=== PATIENT | male | born 1940 | race Caucasian/White ===

== ENCOUNTER 2017-08-24 08:25 | Inpatient (IN) ==
--- NOTE | 2017-08-24 08:53 | Emergency Department Note ---
Disposition Clinical Impression: Urinary retention, Hematochezia Disposition: Admitted As Inpatient Condition: Good Referrals: NONE,PCP [Primary Care Provider] - Forms: ED Satisfaction Letter Time of Disposition: 11:54 General Adult HPI - General Chief complaint: ED GI Bleed Stated complaint: bloody stool Time Seen by Provider: 08/24/17 08:30 Source: patient, family Mode of arrival: ambulatory Limitations: no limitations Nursing Notes Reviewed: Yes Vital Signs Reviewed: Yes - History of Present Illness HPI Narrative: 69-year-old male presented to the emergency department with chief complaint of blood per rectum. Patient states for the last month and a half he has had blood per rectum but it has acutely gotten worse this morning. He states he has a significant past medical history of a triple a repair approximately 2-3 years ago. He also is currently getting treated for prostate cancer. Patient is unsure what medication he is taking although he notes it is an injection. Patient also describes right lower and left lower quadrant abdominal discomfort. He states it does not radiate anywhere. He denies any urinary symptoms. He denies any shortness of breath or chest pain. Patient states he has been feeling weak as well for the past 2 days. Patient denies any passing out or hitting his head. Pain Scale: 2 - Related Data Allergies Allergy/AdvReac Type Severity Reaction Status Date / Time Sulfa (Sulfonamide Allergy Shakiness Verified 08/24/17 08:30 Antibiotics) All systems ED: reviewed and negative except as stated. Constitutional: Reports: weakness. Denies: fever, chills Eyes: Reports: as per HPI ENT ED: Reports: as per HPI Cardiovascular: Denies: chest pain, palpitations Respiratory: Denies: cough, dyspnea, wheezes Gastrointestinal: Reports: abdominal pain, hematochezia. Denies: nausea, vomiting Genitourinary: Reports: as per HPI Musculoskeletal: Reports: as per HPI Integumentary: Reports: as per HPI Neurological: Reports: weakness. Denies: numbness, paresthesias Psychiatric: Reports: as per HPI Endocrine: Reports: as per HPI Hematological/Lymphatic: Reports: as per HPI Allergic/Immunologic: Reports: as per HPI Past Medical History - Past Medical History Attestation: Yes The following information was validated with the patient. Medical history: Reports: cancer, COPD Surgical history: Reports: angioplasty/stent Psychiatric history: Reports: no psych history - Social History Smoking Status: Former smoker Smokeless Tobacco Status: No Alcohol use: Reports: occasionally Drug use: Reports: none Physical Exam - General Limitations: no limitations General appearance: alert, in no apparent distress - Head Head exam: atraumatic, normocephalic, normal inspection - Eye Eye exam: Present: normal appearance. Absent: scleral icterus, conjunctival injection - Chest Chest inspection: Present: normal inspection, symmetric chest wall rise. Absent : tenderness, rash - Respiratory Respiratory exam: Present: normal lung sounds bilaterally. Absent: respiratory distress, wheezes - Cardiovascular Cardiovascular exam: Present: regular rate, normal rhythm, normal heart sounds - Abdominal Exam Abdominal exam: Present: soft, tenderness, distention, incision (Midline well- healed). Absent: guarding, rebound, rigidity, Trotter's sign, Rovsing's sign, tenderness at McBurney's Point Abdominal tenderness: Present: RLQ, LLQ, mild - Extremities Exam Extremities exam: Present: normal inspection, full ROM - Neurological Exam Neurological exam: Present: alert, oriented X3 - Psychiatric Psychiatric exam: Present: normal affect, normal mood - Skin Skin exam: Present: warm, intact Course Course Narrative: 69-year-old male presenting to the emergency department chief complaint of blood per rectum. Patient has had a AAA repair in the past 2-3 years. Concern for GI bleed at this time. We will obtain basic lab work including a type and screen along with a CBC and obtain a CTA of the abdomen and pelvis. Patient's alert and oriented 3 in the room. He is hypertensive with systolic in the 200s the patient states he has been taking his blood pressure at home and the last reading 2 days ago was 194/104. Patient is not tachycardic and vital signs are otherwise stable at this time. is at bedside at this time. They agree with the plan at this time. Disposition most likely admission at this time. - Reevaluation(s) Reevaluation #1: Patient's CT has come back with a significantly distended bladder. We will admit patient at this time for GI bleed and urinary retention. The hospitalist Dr. Pedro agrees with this and is willing to accept the patient this time. Bedside ultrasound completed showed post void residual of greater than 700 mL in the bladder. We will place a Hughes and the patient at this time. Patient is alert and oriented 3 and her with stable vital signs at this time and agreed with this plan. Time: 11:53 Vital Signs Temperature 97.4 F L 08/24/17 08:25 Pulse Rate 86 08/24/17 08:25 Respiratory Rate 20 08/24/17 08:25 Blood Pressure 210/100 08/24/17 08:25 O2 Sat by Pulse Oximetry 92 08/24/17 08:25 Temperature 97.4 F L 08/24/17 08:25 Pulse Rate 92 08/24/17 11:37 Respiratory Rate 14 08/24/17 11:37 Blood Pressure 173/96 08/24/17 11:37 O2 Sat by Pulse Oximetry 92 08/24/17 11:37 Oxygen Delivery Oxygen Delivery Room Air Medical Decision Making - Lab Data Result diagrams: 08/24/17 09:46 08/24/17 09:46 Lab Results 08/24/17 08/24/17 08/24/17 Range/Units 09:46 09:46 09:46 WBC 5.6 (4.3-11.1) K/mcL RBC 4.69 (4.19-5.50) M/mcL Hgb 15.1 (12.9-16.9) g/dL Hct 45.0 (37.5-50.1) % MCV 95.9 (83.0-100.0) fL MCH 32.2 (28.0-33.3) pg MCHC 33.6 (31.6-35.5) g/dL RDW 12.0 (11.5-14.5) % Plt Count 220 (140-400) K/mcL MPV 10.2 (9.4-12.4) fL Immature Gran % 0.2 (0-4) % Seg Neutrophils % 68.2 % Lymphocytes % 18.1 % Monocytes % 10.2 % Eosinophils % 2.9 % Basophils % 0.4 % Neutrophils # 3.8 (1.6-8.9) K/mcL Lymphocytes # 1.0 (0.6-4.6) K/mcL Monocytes # 0.6 (0.0-1.3) K/mcL Eosinophils # 0.2 (0.0-0.6) K/mcL Basophils # 0.0 (0.0-0.2) K/mcL Nucleated RBCs/100 WBC 0.4 H (0) /100 WBC Immature Plt Fraction 3.8 (1.1-6.1) % PT 11.5 (9.4-12.1) Seconds INR 1.1 APTT 30.7 (26.0-36.0) Seconds Sodium (136-145) mEq/L Potassium (3.5-4.5) mEq/L Chloride (98-109) mEq/L Carbon Dioxide (19-29) mEq/L BUN (8-26) mg/dL Creatinine (0.72-1.25) mg/dL Est GFR ( Amer) (> 60) Est GFR (Non-Af Amer) (> 60) BUN/Creatinine Ratio (6-26) Glucose (70-99) mg/dL Calculated Osmolality (280-300) Calcium (8.6-10.8) mg/dL Troponin I 0.00 (0-0.03) ng/mL Stool Occult Blood (Negative) Blood Type Antibody Screen 08/24/17 08/24/17 08/24/17 Range/Units 09:46 09:46 10:24 WBC (4.3-11.1) K/mcL RBC (4.19-5.50) M/mcL Hgb (12.9-16.9) g/dL Hct (37.5-50.1) % MCV (83.0-100.0) fL MCH (28.0-33.3) pg MCHC (31.6-35.5) g/dL RDW (11.5-14.5) % Plt Count (140-400) K/mcL MPV (9.4-12.4) fL Immature Gran % (0-4) % Seg Neutrophils % % Lymphocytes % % Monocytes % % Eosinophils % % Basophils % % Neutrophils # (1.6-8.9) K/mcL Lymphocytes # (0.6-4.6) K/mcL Monocytes # (0.0-1.3) K/mcL Eosinophils # (0.0-0.6) K/mcL Basophils # (0.0-0.2) K/mcL Nucleated RBCs/100 WBC (0) /100 WBC Immature Plt Fraction (1.1-6.1) % PT (9.4-12.1) Seconds INR APTT (26.0-36.0) Seconds Sodium 137 (136-145) mEq/L Potassium 3.9 (3.5-4.5) mEq/L Chloride 102 (98-109) mEq/L Carbon Dioxide 27 (19-29) mEq/L BUN 11 (8-26) mg/dL Creatinine 0.76 (0.72-1.25) mg/dL Est GFR ( Amer) > 60 (> 60) Est GFR (Non-Af Amer) > 60 (> 60) BUN/Creatinine Ratio 14 (6-26) Glucose 95 (70-99) mg/dL Calculated Osmolality 283 (280-300) Calcium 9.1 (8.6-10.8) mg/dL Troponin I (0-0.03) ng/mL Stool Occult Blood Positive A (Negative) Blood Type A POSITIVE Antibody Screen NEGATIVE - EKG Data EKG #1 EKG attestation: Yes I reviewed and interpreted this EKG. EKG results narrative: Sinus rhythm with sinus arrhythmia. 84 bpm. Left axis deviation. [place] interval 180, QRS 93, QTc 455. [place] of the T wave abnormalities noted. When compared to previous EKG completed on 09/07/2014 no specific changes noted.
--- NOTE | 2017-08-24 09:10 | Emergency Department Note ---
Disposition Clinical Impression: Urinary retention, Hematochezia Disposition: Admitted As Inpatient Condition: Good Referrals: NONE,PCP [Primary Care Provider] - Forms: ED Satisfaction Letter General Adult HPI - General Chief complaint: ED GI Bleed Stated complaint: bloody stool Time Seen by Provider: 08/24/17 08:30 Source: patient, family Mode of arrival: ambulatory Limitations: no limitations Nursing Notes Reviewed: Yes Vital Signs Reviewed: Yes - History of Present Illness Pain Scale: 2 - Related Data Allergies Allergy/AdvReac Type Severity Reaction Status Date / Time Sulfa (Sulfonamide Allergy Shakiness Verified 08/24/17 08:30 Antibiotics) Past Medical History - Past Medical History Medical history: Reports: cancer, COPD Surgical history: Reports: angioplasty/stent Psychiatric history: Reports: no psych history - Social History Smoking Status: Former smoker Smokeless Tobacco Status: No Alcohol use: Reports: occasionally Drug use: Reports: none Physical Exam - General Limitations: no limitations General appearance: alert, in no apparent distress Course Vital Signs Temperature 97.4 F L 08/24/17 08:25 Pulse Rate 86 08/24/17 08:25 Respiratory Rate 20 08/24/17 08:25 Blood Pressure 210/100 08/24/17 08:25 O2 Sat by Pulse Oximetry 92 08/24/17 08:25 Temperature 97.4 F L 08/24/17 08:25 Pulse Rate 92 08/24/17 11:37 Respiratory Rate 14 08/24/17 11:37 Blood Pressure 173/96 08/24/17 11:37 O2 Sat by Pulse Oximetry 92 08/24/17 11:37 Oxygen Delivery Oxygen Delivery Room Air Medical Decision Making - MDM Narrative Medical decision making narrative: I examined this patient and my medical decision-making was reviewed with the Resident Physician. I agree with the documented findings, disposition and treatment plan as described except to the extent set forth below. Patient seen and evaluated on arrival with Dr. Rodriges, and myself, high-grade evaluation and management plan, supervise care this patient's stay. Patient presents today with lower GI bleeding. Had a history of gastric ulcer in the past but did not have this corrected with surgical repair. Neuro abdominal pain does know does look distended. He did have a review is triple-A repair. That has been doing well. Negative CT about a year ago from that is all lower does not go up in the thoracic region. He denies any chest pain or shortness of breath. Blood pressure is high today. We will start an IV on him check lab work CT his abdomen then reassess. He is in agreement with this plan. He is stable at this time. Chest X-Ray 08/24/17 08:32 IMPRESSION: 1. Borderline cardiomegaly without overt failure. 2. Linear densities involving the lower lung zones likely representing scarring. D/ / Gordo Miller MD / Gordo Miller MD Interpreting Provider: Gordo Miller MD Abdomen/Pelvis CTA 08/24/17 08:46 IMPRESSION: 1. Status post endovascular repair of an abdominal aortic aneurysm with no evidence for an endoleak and slight regression of the aneurysm sac now measuring 4 x 4.1 cm. 2. No evidence for retroperitoneal hemorrhage. 3. Hepatic hemangiomas. 4. Patent left to right femoral femoral artery bypass graft. 5. Marked bladder distention. D/ / Gordo Miller MD / Gordo Miller MD Interpreting Provider: Gordo Miller MD 11:30: Patient does have positive guaiac. With a history of a GI bleed. Return to admit. He has a large bladder so we will place a Hughes to see if we can drain that also. And I will speak with the hospitalist. 1150 hrs.: Bedside ultrasound performed by the ER resident, shows a large bladder more than 500 mL. More likely 7800 mL. This is after he urinated. Diane place a Hughes in him. And C3 and drain that completely. I am guessing this is from his history of prostate cancer in the past. He is in agreement with this plan. - Lab Data Result diagrams: 08/24/17 09:46 08/24/17 09:46 Lab Results 08/24/17 08/24/17 08/24/17 Range/Units 09:46 09:46 09:46 WBC 5.6 (4.3-11.1) K/mcL RBC 4.69 (4.19-5.50) M/mcL Hgb 15.1 (12.9-16.9) g/dL Hct 45.0 (37.5-50.1) % MCV 95.9 (83.0-100.0) fL MCH 32.2 (28.0-33.3) pg MCHC 33.6 (31.6-35.5) g/dL RDW 12.0 (11.5-14.5) % Plt Count 220 (140-400) K/mcL MPV 10.2 (9.4-12.4) fL Immature Gran % 0.2 (0-4) % Seg Neutrophils % 68.2 % Lymphocytes % 18.1 % Monocytes % 10.2 % Eosinophils % 2.9 % Basophils % 0.4 % Neutrophils # 3.8 (1.6-8.9) K/mcL Lymphocytes # 1.0 (0.6-4.6) K/mcL Monocytes # 0.6 (0.0-1.3) K/mcL Eosinophils # 0.2 (0.0-0.6) K/mcL Basophils # 0.0 (0.0-0.2) K/mcL Nucleated RBCs/100 WBC 0.4 H (0) /100 WBC Immature Plt Fraction 3.8 (1.1-6.1) % PT 11.5 (9.4-12.1) Seconds INR 1.1 APTT 30.7 (26.0-36.0) Seconds Sodium (136-145) mEq/L Potassium (3.5-4.5) mEq/L Chloride (98-109) mEq/L Carbon Dioxide (19-29) mEq/L BUN (8-26) mg/dL Creatinine (0.72-1.25) mg/dL Est GFR ( Amer) (> 60) Est GFR (Non-Af Amer) (> 60) BUN/Creatinine Ratio (6-26) Glucose (70-99) mg/dL Calculated Osmolality (280-300) Calcium (8.6-10.8) mg/dL Troponin I 0.00 (0-0.03) ng/mL Stool Occult Blood (Negative) Blood Type Antibody Screen 11/15/17 11/15/17 11/15/17 Range/Units 09:46 09:46 10:24 WBC (4.3-11.1) K/mcL RBC (4.19-5.50) M/mcL Hgb (12.9-16.9) g/dL Hct (37.5-50.1) % MCV (83.0-100.0) fL MCH (28.0-33.3) pg MCHC (31.6-35.5) g/dL RDW (11.5-14.5) % Plt Count (140-400) K/mcL MPV (9.4-12.4) fL Immature Gran % (0-4) % Seg Neutrophils % % Lymphocytes % % Monocytes % % Eosinophils % % Basophils % % Neutrophils # (1.6-8.9) K/mcL Lymphocytes # (0.6-4.6) K/mcL Monocytes # (0.0-1.3) K/mcL Eosinophils # (0.0-0.6) K/mcL Basophils # (0.0-0.2) K/mcL Nucleated RBCs/100 WBC (0) /100 WBC Immature Plt Fraction (1.1-6.1) % PT (9.4-12.1) Seconds INR APTT (26.0-36.0) Seconds Sodium 137 (136-145) mEq/L Potassium 3.9 (3.5-4.5) mEq/L Chloride 102 (98-109) mEq/L Carbon Dioxide 27 (19-29) mEq/L BUN 11 (8-26) mg/dL Creatinine 0.76 (0.72-1.25) mg/dL Est GFR ( Amer) > 60 (> 60) Est GFR (Non-Af Amer) > 60 (> 60) BUN/Creatinine Ratio 14 (6-26) Glucose 95 (70-99) mg/dL Calculated Osmolality 283 (280-300) Calcium 9.1 (8.6-10.8) mg/dL Troponin I (0-0.03) ng/mL Stool Occult Blood Positive A (Negative) Blood Type A POSITIVE Antibody Screen NEGATIVE
[2017-08-24 09:57] LABS: Basophils % 0.4 %; Eosinophils # 0.2 K/mcL (0.0-0.6); Eosinophils % 2.9 %; Hemoglobin 15.1 g/dL (12.9-16.9); Immature Granulocytes % 0.2 % (0-4); Immature Platelets 3.8 % (1.1-6.1); Lymphocytes % 18.1 %; Mean Corpuscular HGB Conc 33.6 g/dL (31.6-35.5); Mean Corpuscular Hemoglobin 32.2 pg (28.0-33.3); Mean Corpuscular Volume 95.9 fL (83.0-100.0); Mean Platelet Volume 10.2 fL (9.4-12.4); Monocytes # 0.6 K/mcL (0.0-1.3); Monocytes % 10.2 %; Neutrophils # 3.8 K/mcL (1.6-8.9); Nucleated Red Blood Cells 0.4 /100 WBC (0); Platelet Count 220 K/mcL (140-400); Red Blood Count 4.69 M/mcL (4.19-5.50); Segmented Neutrophils % 68.2 %
[2017-08-24 10:04] LABS: INR 1.1; Prothrombin Time 11.5 Seconds (9.4-12.1)
[2017-08-24 10:06] LABS: Activated Partial Thrombo Time 30.7 Seconds (26.0-36.0)
[2017-08-24 10:09] LABS: BUN/Creatinine Ratio 14 (6-26); Blood Urea Nitrogen 11 mg/dL (8-26); Calcium 9.1 mg/dL (8.6-10.8); Carbon Dioxide 27 mEq/L (19-29); Chloride 102 mEq/L (98-109); Glucose 95 mg/dL (70-99); Osmolality,Calculated 283 (280-300); Potassium 3.9 mEq/L (3.5-4.5); Sodium 137 mEq/L (136-145); eGFR For African Americans > 60 (> 60); eGFR For Non-African Americans > 60 (> 60)
[2017-08-24 11:57] LABS: Hemoglobin 14.9 g/dL (12.9-16.9)
[2017-08-24] MEDS ORDERED: Naloxone 0.4 MG/ML INJ IVP PRN (12:57)
[2017-08-24] MEDS ORDERED: Ondansetron 4 MG/2 ML VIAL IVP PRN (12:57)
[2017-08-24] MEDS ORDERED: Nitroglycerin 0.4 MG TAB.SUBL SL PRN (13:10)
[2017-08-24] MEDS ORDERED: Ipratropium/Albuterol Neb 3 ML IH PRN (13:11)
[2017-08-24] MEDS ORDERED: Pantoprazole 40 MG in 0.9 % Sodium Chloride Mini Bag 100 ML IVC SCH (13:15)
[2017-08-24 13:25] LABS: Hematocrit 43.9 % (37.5-50.1); Hemoglobin 14.7 g/dL (12.9-16.9)
--- NOTE | 2017-08-24 15:49 | Electrocardiograph Report ---
[address] [place], [place] [address] Test Date: 2017-08-24 Pat Name: Gume Brown Department: 104 Room: 3A41 Gender: M Sliver Cutter: : [id number] Requested By: Branden Guo Order Number: [id number] Reading MD: Angel Ernandez MD Measurements Intervals [place] Rate: 84 P: 64 VA: 180 QRS: -22 QRSD: 93 T: 64 QT: 414 QTc: 455 Interpretive Statements SINUS RHYTHM WITH SINUS ARRHYTHMIA BORDERLINE LEFT AXIS DEVIATION Electronically Signed On 08-24-2017 15:47:57 EST by Angel Ernandez MD
[2017-08-24] MEDS: Pantoprazole 80 MG in 0.9 % Sodium Chloride 250 ML IVC SCH (16:12)
[2017-08-24 16:31] LABS: Hematocrit 42.9 % (37.5-50.1); Hemoglobin 14.7 g/dL (12.9-16.9)
[2017-08-24] MEDS: Budesonide/Formoterol 160/4.5 MDI IH SCH (19:52)
--- NOTE | 2017-08-24 21:37 | Internal Med History&Physical ---
<Wyatt Rodríguez - Last Filed: 08/24/17 22:08> Date of Encounter: 08/24/17 Time of Encounter: 12:00 Assessment and Plan (1) Hematochezia Current visit: Yes Status: Acute Acute on chronic rectal bleeding. Pt. states he's had melanotic stools for 1.5 months which have progressed to bright red blood over the past several days. Pt. states last EGD/colonoscopy >10 years ago. GI consult ordered. Monitor pt. for signs of continued bleeding. Pt. at high risk for morbidity based on current GI bleeding, history of melanotic stools, and history of current cancer. Inpatient. (2) Weakness Current visit: Yes Status: Acute Acute weakness reported over the past several days most likely d/t blood loss. Falls/safety precautions ordered. Pt. to be monitored closely for signs of bleeding, cardiac, and/or respiratory distress. (3) Anemia Current visit: Yes Status: Acute Acute on chronic anemia. Pts. Hgb and Hct WNL on admission and dropping in subsequent labs, but still WNL. Type and screen ordered. B12 IM and folic acid daily. H/H Q6. Qualifiers: Anemia type: unspecified type Qualified Code(s): D64.9 - Anemia, unspecified (4) Urinary retention Current visit: Yes Status: Acute Acute urinary retention most likely d/t current BPH and prostate cancer. Hughes catheter inserted and >1000 mL extracted. Will monitor I&O and daily weight. Pt. to f/u w/his oncologist for continuation of txs. (5) Prostate cancer Current visit: Yes Hx of chronic prostate cancer. Pt. experiencing urinary retention most likely due to current BPH and cancer. Hughes catheter inserted and >1000 mL extracted. Will monitor I&O and daily weight. Pt. to f/u w/his oncologist for continuation of txs. (6) COPD (chronic obstructive pulmonary disease) Current visit: Yes Status: Chronic Hx of chronic COPD. Stable. Supplemental O2 w/titration and SpO2 monitoring. DuoNebs Q6 PRN. Qualifiers: COPD type: emphysema Qualified Code(s): J43.9 - Emphysema, unspecified (7) DVT prophylaxis Current visit: Yes Status: Acute Bilateral SCDs on LEs for DVT prophylaxis. Pharmacologic DVT prophylaxis contraindicated due to current GI bleeding. Internal Medicine - H&P: HPI Chief complaint: GI bleed Admitted From: Emergency Dept Plans for Post Hospital Care: Home History of present illness: Mr. Brown is a 77 year old male with medical history of prostate cancer and COPD presents from the ED with chief complaint of bright blood in his stool for the past 2-3 days as well as increasing generalized weakness over the same time period. Patient states he has had black stool intermittently over the past one half months which has turned to mainly bright blood and today had blood in the toilet bowl without BM. Patient also states he has left lower quadrant abdominal discomfort. Hgb and Hct WNL on admission. He denies recent illness, fever, chills, nausea, vomiting, diarrhea, constipation, chest pain, palpitations, cough, shortness of breath, numbness, tingling, changes in vision , dizziness, lightheadedness, pre-syncope, or syncope. Past Med Surg Social Fam HX - Past Medical History Source: patient, old records reviewed Medical history: cancer (Prostate), COPD Psychiatric history: no psych history - Past Surgical History Surgical History: angioplasty/stent (1 stent in aorta) - Social History Smoking Status: Former smoker Packs per day: 1.5 - 2 PPD Smokeless Tobacco Status: No Alcohol use: occasionally Drug use: none Current living situation: Home Activity Level: Independent ambulation Recent Out of Country Travel Within the Last 8 Weeks: No Exposure or Possible Exposure to Illness During Travel: No - Family History Father Race: Family Member Ethnicity: Non- Living Status: Age at : 75 Cause of : NE Hx Family Cardiac Disorders: Yes (NE) Mother Race: Family Member Ethnicity: Non- Living Status: Age at : 61 Cause of : Leukemia Hx Family Cancer: Yes (Leukemia) Sister Race: Family Member Ethnicity: Non- Living Status: Age at : 72 Cause of : CHF Hx Family Cardiac Disorders: Yes (CHF) Internal Medicine - H&P: Meds Albuterol Sulfate [Albuterol Inhaler] 2 puff IH Q4-6H PRN 08/24/17 [History] Aspirin 325 mg PO DAILY 08/24/17 [History] Atorvastatin [Lipitor] 40 mg PO QPM 08/24/17 [History] Budesonide/Formoterol 160/4.5 [Symbicort 160/4.5] 2 puff IH BID 08/24/17 [ History] Cholecalciferol (D-3) [Vitamin D] 10,000 unit PO QWEEK 08/24/17 [History] Multivit-Min/FA/Lycopen/Lutein [A Thru Z Select Multivit Tab] 1 tab PO DAILY [History] Nitroglycerin [Nitrostat] 0.4 mg SL Q5M PRN 08/24/17 [History] Vitamin E 100 unit PO DAILY 08/24/17 [History] 3 Allergy/AdvReac Type Severity Reaction Status Date / Time Sulfa (Sulfonamide AdvReac Shakiness Verified 08/24/17 12:09 Antibiotics) All Systems PM: A 10-system review of systems was performed and is negative for pertinent findings except as documented above in the HPI. - Constitutional Constitutional: as per HPI, weakness, no chills, no fever(s), no night sweats - EENT Eyes: no change in vision, no discharge, no pain, no photophobia Ears: no ear discharge, no ear pain, no tinnitus Nose, mouth and throat: no dysphagia, no nasal discharge, no neck pain, no sore throat - Breasts Breasts: as per HPI - Cardiovascular Cardiovascular ROS IM: no chest pain, no diaphoresis, no dyspnea, no lightheadedness, no palpitations, no syncope - Respiratory Respiratory: no cough, no dyspnea, no wheezing, no excessive phlegm production - Gastrointestinal Gastrointestinal: as per HPI, hematochezia, melena, no abdominal pain, no diarrhea, no hematemesis, no nausea, no vomiting - Genitourinary Genitourinary ROS male: as per HPI - Musculoskeletal Musculoskeletal ROS IM: no numbness, no tingling - Integumentary Integumentary IM: no rash, no unusual bruising - Neurological Neurological ROS: no confusion, no convulsions, no focal weakness, no numbness, no tingling, no tremor(s) - Psychiatric Psychiatric: as per HPI - Endocrine Endocrine IM: as per HPI - Hematologic/Lymphatic Hematologic/Lymphatic: as per HPI - Allergic/Immunologic Allergic/Immunologic: as per HPI - Constitutional Vitals: Temp Pulse Resp BP Pulse Ox 98.4 F 82 14 152/76 92 08/24/17 19:24 08/24/17 20:53 08/24/17 20:53 08/24/17 20:53 08/24/17 20:53 General appearance: Present: cooperative, A&O X 3, pleasant, no acute distress, answers questions appropriately - Head Head exam: Present: atraumatic, normocephalic - Eye Eye exam: Present: PERRL, conjuntiva pink, sclera anicteric Pupils: Present: PERRL - ENT ENT exam: Present: normal exam, normal external ear exam - Neck Neck exam general surgery: Present: normal inspection, supple, trachea midline. Absent: lymphadenopathy - Respiratory Respiratory exam: Present: CTAB. Absent: accessory muscle use, rales, rhonchi, wheezes - Cardiovascular Cardiovascular exam: Present: irregular rhythm, +S1, +S2. Absent: diastolic murmur, gallop, rubs, systolic murmur - GI/Abdominal GI/Abdominal exam: Present: normal bowel sounds, soft, no peritoneal signs. Absent: distended, tenderness - Rectal Rectal exam: Present: deferred - Additional comments: exam deferred. - Extremities Exam Extremities exam: Present: warm, radial pulses palpable and symmetrical. Absent : calf tenderness, cyanotic, pedal edema - Back Exam Back exam: Present: normal inspection - Neurological Exam Neurological exam: Present: CN II-XII intact, oriented X3, no focal deficits. Absent: pronater drift, facial droop, speech deficit - Psychiatric Psychiatric exam: Present: normal affect, normal mood - Skin Skin exam: Present: dry, intact Internal Med - H&P Results - Labs CBC & Chem 7: 08/24/17 16:10 08/24/17 09:46 Labs: Short CBC 08/24/17 Range/Units 16:10 Hgb 14.7 (12.9-16.9) g/dL Hct 42.9 (37.5-50.1) % - EKG Data EKG shows normal: sinus rhythm - EKG Data Prior EKG available for review: yes EKG comments: 08/24/17 21:47 EKG dated 08/28/14 shows sinus rhythm with Q waves in septal lead, possible septal infarction of undetermined age, T-wave changes in inferior leads. Abnormal ECG. EKG dated 08/24/17 shows sinus rhythm with sinus arrhythmia, borderline left axis deviation, nonspecific T-wave abnormality. Borderline ECG. - Diagnostic Studies Chest x-ray Additional comments: Impressions Chest X-Ray 08/24/17 08:32 IMPRESSION: 1. Borderline cardiomegaly without overt failure. 2. Linear densities involving the lower lung zones likely representing scarring. D/ / Gordo Miller MD / Gordo Miller MD Interpreting Provider: Gordo Miller MD Other Images Additional comments: Impressions Abdomen/Pelvis CTA 08/24/17 08:46 IMPRESSION: 1. Status post endovascular repair of an abdominal aortic aneurysm with no evidence for an endoleak and slight regression of the aneurysm sac now measuring 4 x 4.1 cm. 2. No evidence for retroperitoneal hemorrhage. 3. Hepatic hemangiomas. 4. Patent left to right femoral femoral artery bypass graft. 5. Marked bladder distention. D/ / Gordo Miller MD / Gordo Miller MD Interpreting Provider: Gordo Miller MD - VTE Documentation of Mechanical Device: Intermittent pneumatic compression device <Joseph Pedro - Last Filed: 08/24/17 23:55> Date of Encounter: 08/24/17 Internal Medicine - H&P: HPI History of present illness: Mr. Brown is a 77 year old male All Systems PM: A 10-system review of systems was performed and is negative for pertinent findings except as documented above in the HPI. - Constitutional Vitals: Temp Pulse Resp BP Pulse Ox 97.8 F 80 14 149/78 93 08/24/17 23:09 08/24/17 23:09 08/24/17 23:09 08/24/17 23:09 08/24/17 23:09 Internal Med - H&P Results - Labs CBC & Chem 7: 08/24/17 22:28 08/24/17 09:46 Labs: Short CBC 08/24/17 08/24/17 Range/Units 16:10 22:28 Hgb 14.7 14.1 (12.9-16.9) g/dL Hct 42.9 41.5 (37.5-50.1) % - Attending Attestation I have personally performed a face to face evaluation on this patient on . I have reviewed and agree with the care plan. History and Exam by me shows: 77 y/o male presented with lower GI bleed. Exam Alert. Pleasant. Heart reg No wheeze Abd soft Agree with assessment and plan as outlined above.
[2017-08-24] MEDS ORDERED: Cyanocobalamin (B-12) 1,000 MCG/ML VIAL IM ONE (22:01)
[2017-08-24 22:34] LABS: Hematocrit 41.5 % (37.5-50.1); Hemoglobin 14.1 g/dL (12.9-16.9)
[2017-08-25] MEDS: Pantoprazole 80 MG in 0.9 % Sodium Chloride 250 ML IVC SCH (02:34)
[2017-08-25 05:04] LABS: Basophils % 0.5 %; Eosinophils # 0.2 K/mcL (0.0-0.6); Eosinophils % 3.6 %; Hematocrit 42.6 % (37.5-50.1); Hemoglobin 14.3 g/dL (12.9-16.9); Immature Granulocytes % 0.2 % (0-4); Lymphocytes # 1.3 K/mcL (0.6-4.6); Lymphocytes % 19.9 %; Mean Corpuscular HGB Conc 33.6 g/dL (31.6-35.5); Mean Corpuscular Hemoglobin 32.1 pg (28.0-33.3); Mean Corpuscular Volume 95.5 fL (83.0-100.0); Mean Platelet Volume 10.7 fL (9.4-12.4); Monocytes # 0.8 K/mcL (0.0-1.3); Monocytes % 12.1 %; Neutrophils # 4.1 K/mcL (1.6-8.9); Platelet Count 227 K/mcL (140-400); Red Blood Count 4.46 M/mcL (4.19-5.50); Red Cell Distribution Width 12.2 % (11.5-14.5); Segmented Neutrophils % 63.7 %
[2017-08-25 05:08] LABS: INR 1.1; Prothrombin Time 12.2 Seconds (9.4-12.1)
[2017-08-25 05:09] LABS: Activated Partial Thrombo Time 29.6 Seconds (26.0-36.0)
[2017-08-25 05:16] LABS: Alanine Aminotransferase 18 Units/L (0-55); Albumin 3.3 g/dL (3.5-5.0); Albumin/Globulin Ratio 1.3 (1.1-2.2); Alkaline Phosphatase 88 Units/L (38-126); Aspartate Amino Transferase 20 Units/L (5-34); BUN/Creatinine Ratio 11 (6-26); Bilirubin,Total 0.6 mg/dL (0.2-1.2); Blood Urea Nitrogen 8 mg/dL (8-26); Calcium 8.6 mg/dL (8.6-10.8); Carbon Dioxide 24 mEq/L (19-29); Chloride 105 mEq/L (98-109); Chol/HDL Ratio 4.2 (0-4.9); Cholesterol 180 mg/dL (< 200); Globulin 2.6 g/dL (2.4-3.5); Glucose 96 mg/dL (70-99); HDL Cholesterol 43 mg/dL (40-59); LDL Cholesterol,Calculated 93 mg/dL (0-99); Magnesium 1.8 mg/dL (1.6-2.6); Osmolality,Calculated 282 (280-300); Potassium 3.8 mEq/L (3.5-4.5); Sodium 137 mEq/L (136-145); Total Protein 5.9 g/dL (6.0-8.3); Triglycerides 219 mg/dL (< 150); eGFR For African Americans > 60 (> 60); eGFR For Non-African Americans > 60 (> 60)
[2017-08-25] MEDS ORDERED: Folic Acid 1 MG TABLET PO SCH (09:00)
--- NOTE | 2017-08-25 11:24 | Gastroenterology Consult Note ---
<TimJose Ricardo - Last Filed: 08/25/17 11:21> Date of Encounter: 08/25/17 Time of Encounter: 10:55 - Assessment and plan (1) BRBPR (bright red blood per rectum) Status: Acute Assessment and plan: Pt with intermittent episodes of BRBPR that has been occurring for the past couple of weeks. Hgb on admission 15.1 and Hgb today 14.3. Colonoscopy recommended, but pt would like to complete this as an outpatient. Will plan for outpatient colonoscopy. - Time Spent With Patient Total time spent is greater than 50% in coordination of care (as documented) at patient's floor/unit and/or counseling patient: GI History of Present Illness - Data of Consult Patient: new to practice Consult date: 08/25/17 Requesting Physician: River Gregory MD - Consult Narrative Reason for consult: Intermittent GI bleeding History of present illness: Mr. Brown is a 77 year old male with PMHx of prostate cancer, COPD who presented to the ED with complaints of BRBPR for the past 2-3 days and LLQ abdominal pain. He also reports increased weakness. Patient states he has had dark brown stool intermittently over the past one half months which has turned to mainly bright blood. He denies any black/tarry stools. He reports BRBPR with wiping and in bowl. He states he had half of his stomach removed due to "ulcers " on 12/08/1995. He denies fever, chills, nausea, chest pain, shortness of breath, vomiting, diarrhea, or constipation. Hgb on admission was 15.1 and today Hgb 14.3. Procedures: Colonoscopy in NSAIDs: ASA Anticoagulation: None Past Med Surg Social Fam HX - Past Medical History Medical history: cancer (Prostate), COPD Psychiatric history: no psych history - Past Surgical History Surgical History: angioplasty/stent (1 stent in aorta) - Social History Smoking Status: Former smoker Packs per day: 1.5 - 2 PPD Smokeless Tobacco Status: No Alcohol use: occasionally Drug use: none - Family History Father Race: Family Member Ethnicity: Non- Living Status: Age at : 75 Cause of : MD Hx Family Cardiac Disorders: Yes (MD) Mother Race: Family Member Ethnicity: Non- Living Status: Age at : 61 Cause of : Leukemia Hx Family Cancer: Yes (Leukemia) Sister Race: Family Member Ethnicity: Non- Living Status: Age at : 72 Cause of : CHF Hx Family Cardiac Disorders: Yes (CHF) - Gastrointestinal Gastrointestinal: Present: as per HPI - Constitutional Constitutional: as per HPI - EENT Eyes: as per HPI Ears: Present: as per HPI Nose, mouth and throat: Present: as per HPI - Cardiovascular Cardiovascular ROS: Present: as per HPI - Respiratory Respiratory IM: Present: as per HPI - Genitourinary Genitourinary: Absent: change in color, Urinary frequency - Neurological ROS Neurological GI: Present: as per HPI - Hematologic/Lymphatic Hematologic/Lymphatic pediatric: Present: as per HPI - Musculoskeletal Musculoskeletal ROS GI: Present: as per HPI - Integumentary Integumentary GI: Present: as per HPI - Psychiatric ROS Psychiatric GI: Present: as per HPI - Endocrine Endocrine IM: Present: as per HPI - Constitutional Vitals: Temp Pulse Resp BP Pulse Ox 97.5 F L 92 15 148/85 95 08/25/17 10:33 08/25/17 10:33 08/25/17 10:33 08/25/17 10:33 08/25/17 10:33 General appearance: Present: cooperative, A&O X 3, no acute distress, answers questions appropriately - Head Head exam: Present: atraumatic, normocephalic - Eye Eye exam: Present: normal appearance, sclera anicteric - ENT ENT exam: Present: mucous membranes moist - Neck Neck exam general surgery: Present: normal inspection, trachea midline - Respiratory Respiratory exam: Present: CTAB. Absent: rales, rhonchi - Cardiovascular Cardiovascular exam: Present: RRR, +S1, +S2 - GI/Abdominal GI/Abdominal exam: Present: soft, no peritoneal signs. Absent: distended, firm , guarding, tenderness - Rectal Rectal exam: Present: deferred - Extremities Exam Extremities exam: Present: warm - Neurological Exam Neurological exam: Present: no focal deficits - Psychiatric Psychiatric exam: Present: normal affect, normal mood - Skin Skin exam: Present: dry, intact, normal color, warm Results - Labs CBC & Chem 7: 08/25/17 04:19 08/25/17 04:19 Labs: Last Result Calcium 8.6 mg/dL (8.6-10.8) 08/25/17 04:19 Troponin I 0.00 ng/mL (0-0.03) 08/24/17 09:46 Triglycerides 219 mg/dL (< 150) H 08/25/17 04:19 Stool Occult Blood Positive (Negative) A 08/24/17 10:24 Entire Visit Hgb 14.3 g/dL (12.9-16.9) 08/25/17 04:19 Hct 42.6 % (37.5-50.1) 08/25/17 04:19 PT 12.2 Seconds (9.4-12.1) H 08/25/17 04:19 Total Bilirubin 0.6 mg/dL (0.2-1.2) 08/25/17 04:19 AST 20 Units/L (5-34) 08/25/17 04:19 ALT 18 Units/L (0-55) 08/25/17 04:19 - ABG ABG results: PT/INR, D-dimer PT 12.2 Seconds (9.4-12.1) H 08/25/17 04:19 Consult Discharge Plan - Plan Referrals: Alexis Avila MD [Partnered Physician] - 08/30/17 9:45 am Jose C Morales MD [Partnered Physician] - (in 1-2 weeks for colonoscopy) Prescriptions: Tamsulosin [Flomax] 0.4 mg PO DAILY #30 cap.er.24h <Jose C Morales - Last Filed: 08/30/17 16:15> Date of Encounter: 08/30/17 Time of Encounter: 14:00 - Time Spent With Patient Total time spent is greater than 50% in coordination of care (as documented) at patient's floor/unit and/or counseling patient: GI History of Present Illness - Data of Consult Requesting Physician: River Gregory MD - Consult Narrative History of present illness: Mr. Brown is a 77 year old male - Constitutional Vitals: Temp Pulse Resp BP Pulse Ox 97.9 F 95 14 150/98 98 08/25/17 14:55 08/25/17 14:55 08/25/17 14:55 08/25/17 14:55 08/25/17 14:55 Results - Labs CBC & Chem 7: 08/25/17 04:19 08/25/17 04:19 Labs: Last Result Calcium 8.6 mg/dL (8.6-10.8) 08/25/17 04:19 Troponin I 0.00 ng/mL (0-0.03) 08/24/17 09:46 Triglycerides 219 mg/dL (< 150) H 08/25/17 04:19 Stool Occult Blood Positive (Negative) A 08/24/17 10:24 Entire Visit Hgb 14.3 g/dL (12.9-16.9) 08/25/17 04:19 Hct 42.6 % (37.5-50.1) 08/25/17 04:19 PT 12.2 Seconds (9.4-12.1) H 08/25/17 04:19 Total Bilirubin 0.6 mg/dL (0.2-1.2) 08/25/17 04:19 AST 20 Units/L (5-34) 08/25/17 04:19 ALT 18 Units/L (0-55) 08/25/17 04:19 - ABG ABG results: PT/INR, D-dimer PT 12.2 Seconds (9.4-12.1) H 08/25/17 04:19 - Attending Attestation I examined this patient and my medical decision-making was reviewed with the Resident Physician. I agree with the documented findings, disposition and treatment plan as described except to the extent set forth below.
[2017-08-25] MEDS: Budesonide/Formoterol 160/4.5 MDI IH SCH (11:30)
--- NOTE | 2017-08-25 14:41 | Discharge Summary ---
Date of Encounter: 08/25/17 Time of Encounter: 14:42 - Discharge Diagnosis (1) Anemia Priority: Secondary Status: Acute Qualifiers: Anemia type: unspecified type Qualified Code(s): D64.9 - Anemia, unspecified (2) COPD (chronic obstructive pulmonary disease) Priority: Secondary Status: Chronic Qualifiers: COPD type: emphysema Emphysema type: other Qualified Code(s): J43.8 - Other emphysema (3) DVT prophylaxis Priority: Secondary Status: Acute (4) Hematochezia Priority: Secondary Status: Acute (5) Prostate cancer Priority: Secondary Status: Chronic (6) Urinary retention Priority: Secondary Status: Acute (7) Weakness Priority: Secondary Status: Acute - Discharge Medications Prescriptions: Tamsulosin [Flomax] 0.4 mg PO DAILY #30 cap.er.24h Home Medications: Albuterol Sulfate [Albuterol Inhaler] 2 puff IH Q4-6H PRN 08/24/17 [History] Aspirin 325 mg PO DAILY 08/24/17 [History] Atorvastatin [Lipitor] 40 mg PO QPM 08/24/17 [History] Budesonide/Formoterol 160/4.5 [Symbicort 160/4.5] 2 puff IH BID 08/24/17 [ History] Cholecalciferol (D-3) [Vitamin D] 10,000 unit PO QWEEK 08/24/17 [History] Multivit-Min/FA/Lycopen/Lutein [A Thru Z Select Multivit Tab] 1 tab PO DAILY [History] Nitroglycerin [Nitrostat] 0.4 mg SL Q5M PRN 08/24/17 [History] Vitamin E 100 unit PO DAILY 08/24/17 [History] Tamsulosin [Flomax] 0.4 mg PO DAILY #30 cap.er.24h 08/25/17 [Rx] Allergies/Adverse Reactions: 3 Allergy/AdvReac Type Severity Reaction Status Date / Time Sulfa (Sulfonamide AdvReac Shakiness Verified 08/24/17 12:09 Antibiotics) Date of admission: 08/24/17 16:08 Primary care physician: PCP NONE Discharging clinician: River Gregory Anticipated date of discharge: 08/25/17 - Patient Status Disposition: Home, Self-Care Condition: Good Functional capacity at discharge: independent ambulation Overall status at discharge: patient is progressing back to baseline - Discharge Instructions Follow Up With: Alexis Avila MD [Partnered Physician] - 08/30/17 9:45 am Jose C Morales MD [Partnered Physician] - (in 1-2 weeks for colonoscopy) - Diet and Activity Activity: increase activity as tolerated Diet: low fat, low cholesterol, low salt diet Hospital course: Mr. Brown is a 77 year old male patient who was hospitalized here after he presented with episodes of hematochezia. His blood counts were followed closely. And has remained stable. He has not had any new episodes of hematochezia since yesterday evening. He denies any abdominal pain. He was evaluated by gastroenterology and given that his blood counts are stable and he has not had any further episodes of active GI bleeding, they recommended an outpatient colonoscopy. He will be discharged home today as he is significantly doing better and tolerating oral diet. On presentation to the ER, patient was also having urinary retention and a Hughes catheter was placed. Catheter will be removed at this time and patient will be placed on tamsulosin. He will follow up with urology as outpatient. - Time Spent with Patient Total time spent providing and/or coordinating discharge services: Less than 30 minutes (20 min) - Constitutional Vitals: Temp Pulse Resp BP Pulse Ox 97.5 F L 92 15 148/85 95 08/25/17 10:33 08/25/17 10:33 08/25/17 10:33 08/25/17 10:33 08/25/17 10:33 General appearance: Present: cooperative, A&O X 3, pleasant, no acute distress, answers questions appropriately - Neck Neck exam general surgery: Present: supple, trachea midline. Absent: lymphadenopathy - Respiratory Respiratory exam: Present: CTAB. Absent: accessory muscle use, rales, rhonchi, wheezes - Cardiovascular Cardiovascular exam: Present: RRR, +S1, +S2. Absent: diastolic murmur, gallop, rubs, systolic murmur - GI/Abdominal GI/Abdominal exam: Present: normal bowel sounds, soft, no peritoneal signs. Absent: distended, tenderness - Neurological Exam Neurological exam: Present: alert, oriented X3, no focal deficits. Absent: facial droop, speech deficit - VTE Documentation of Mechanical Device: Intermittent pneumatic compression device
[2017-08-25 14:57] VITALS: BP 150/98
== END 2017-08-25 15:17 | disposition home or self-care (01) | DRG 379 ==
LOC: 3ANU 08:25 → EMEROO 08:25 → 3ANU 12:52
PROVIDERS: ADMIT Internal Medicine; ATTEND Internal Medicine

== ENCOUNTER 2017-10-21 23:54 | Inpatient (IN) ==
[2017-10-22] MEDS ORDERED: Ipratropium/Albuterol Neb 3 ML IH ONE (00:05)
[2017-10-22] MEDS ORDERED: methylPREDNISolone 125 MG/2 ML VIAL IVP ONE (00:12)
[2017-10-22 00:13] LABS: Basophils % 0.4 %; Eosinophils # 0.5 K/mcL (0.0-0.6); Eosinophils % 5.3 %; Hematocrit 44.6 % (37.5-50.1); Hemoglobin 15.1 g/dL (12.9-16.9); Immature Granulocytes % 0.3 % (0-4); Lymphocytes # 0.8 K/mcL (0.6-4.6); Lymphocytes % 7.8 %; Mean Corpuscular HGB Conc 33.9 g/dL (31.6-35.5); Mean Corpuscular Hemoglobin 32.8 pg (28.0-33.3); Mean Corpuscular Volume 96.7 fL (83.0-100.0); Monocytes # 0.6 K/mcL (0.0-1.3); Monocytes % 6.1 %; Neutrophils # 8.1 K/mcL (1.6-8.9); Platelet Count 202 K/mcL (140-400); Red Blood Count 4.61 M/mcL (4.19-5.50); Red Cell Distribution Width 12.1 % (11.5-14.5); Segmented Neutrophils % 80.1 %
[2017-10-22 00:31] LABS: BUN/Creatinine Ratio 14 (6-26); Blood Urea Nitrogen 11 mg/dL (8-23); Calcium 9.1 mg/dL (8.6-10.3); Carbon Dioxide 28 mEq/L (23-29); Chloride 102 mEq/L (98-107); Glucose 101 mg/dL (70-105); Osmolality,Calculated 286 (280-300); Sodium 138 mEq/L (136-145); eGFR For African Americans > 60 (> 60); eGFR For Non-African Americans > 60 (> 60)
--- NOTE | 2017-10-22 01:43 | Emergency Department Note ---
Disposition Clinical Impression: COPD exacerbation, Hypoxia Disposition: Admitted As Inpatient Condition: Good SOB HPI - General Chief Complaint: ED Shortness of Breath/Dyspnea Stated Complaint: alex Time Seen by Provider: 10/22/17 00:11 Source: patient, EMS Limitations: no limitations Nursing Notes Reviewed: Yes Vital Signs Reviewed: Yes - History of Present Illness Patient has COPD and is not oxygen dependent at home. History of prostate cancer currently undergoing immunotherapy. Present stay for evaluation of shortness of breath. Patient states that he thinks may have just overdone it today. Describes using albuterol and Symbicort. Denies fever. Denies prodromal symptoms. Denies cough or sputum production. Denies viral symptoms. - Related Data Home Medications Medication Instructions Recorded Confirmed Albuterol Sulfate [Albuterol 2 puff IH Q4-6H PRN 08/24/17 10/22/17 Inhaler] Aspirin 81 mg PO DAILY 08/24/17 10/22/17 Atorvastatin [Lipitor] 40 mg PO QPM 08/24/17 10/22/17 Budesonide/Formoterol 160/4.5 2 puff IH BID 08/24/17 10/22/17 [Symbicort 160/4.5] Cholecalciferol (D-3) [Vitamin D] 1,000 units PO DAILY 08/24/17 10/22/17 Multivit-Min/FA/Lycopen/Lutein [A 1 tab PO DAILY 08/24/17 10/22/17 Thru Z Select Multivit Tab] Nitroglycerin [Nitrostat] 0.4 mg SL Q5M PRN 08/24/17 10/22/17 Vitamin E 100 unit PO DAILY 08/24/17 10/22/17 Allergies Allergy/AdvReac Type Severity Reaction Status Date / Time Sulfa (Sulfonamide AdvReac Shakiness Verified 08/24/17 12:09 Antibiotics) Review of Systems: CONSTITUTIONAL: No weight loss, fever, chills, weakness or fatigue. HEENT: Eyes: No visual changes. Ears, Nose, Throat: No hearing loss, difficulty talking or unable to swallow. SKIN: No rash or itching. CARDIOVASCULAR: No chest pain, chest pressure or chest discomfort. No palpitations or edema. RESPIRATORY: Shortness of breath GASTROINTESTINAL: No anorexia, nausea, vomiting or diarrhea. No abdominal pain or blood. GENITOURINARY: No burning on urination or hematuria. NEUROLOGICAL: No headache, dizziness, syncope, paralysis, ataxia, numbness or tingling in the extremities. No change in bowel or bladder control. MUSCULOSKELETAL: No muscle pain, back pain, joint pain or stiffness. Past Medical History - Past Medical History Medical history: Reports: cancer, COPD Surgical history: Reports: angioplasty/stent (1 stent in aorta) Psychiatric history: Reports: no psych history - Social History Smoking Status: Former smoker Smokeless Tobacco Status: No Alcohol use: Reports: occasionally Drug use: Reports: none Physical Exam General: Well appearing, nontoxic, no acute distress Head: Normocephalic Atraumatic Eyes: PERRL, EOMI ENT: Airway patent, no stridor Neck: supple, no meningismus Chest: Diffuse wheezing bilaterally with minimal air movement. Cardiac: Regular rate and rhythm, no murmurs, rubs or gallops Abdomen: soft, nontender, nondistended; no guarding, rebound, or tenderness to percussion Musculoskeletal: Calves symmetric, nontender, no palpable cord Skin: No rash, normal skin tone Neuro: Alert and Oriented to person, place, and time; No focal deficit, CN 2-12 symmetric and intact - General Limitations: no limitations General appearance: alert, in no apparent distress Course - Reevaluation(s) Reevaluation #1: Improvement in symptoms. However the patient remains tachycardic. Patient describes rather sudden onset in symptoms. Patient has active prostate cancer. Patient will undergo CTA to rule out PE. Reevaluation #2: The patient's CTA is negative. Upon further questioning of patient patient states that he has had a cough for the past 2 days has had change in sputum production. Overall clinical picture consistent with COPD exacerbation. The patient's oxygen was turned off and he dropped to 88% on room air resting in bed without exertion. Patient states he has a pulse ox which is pulse ox is typically 91%. Will admit for further management. - Consultations Consultation #1: Discussed with Dr. Roberts. Patient accepted for admission. Vital Signs Temperature 98.4 F 10/21/17 23:55 Pulse Rate 109 10/21/17 23:55 Respiratory Rate 24 10/21/17 23:55 Blood Pressure 183/110 10/21/17 23:55 O2 Sat by Pulse Oximetry 94 10/21/17 23:55 Temperature 97.7 F 10/22/17 04:26 Pulse Rate 101 10/22/17 04:26 Respiratory Rate 22 10/22/17 04:26 Blood Pressure 168/89 10/22/17 04:26 O2 Sat by Pulse Oximetry 91 10/22/17 04:26 Oxygen Delivery Oxygen Delivery Nasal Cannula Shortness of Breath/Dyspnea - Lab Data Result diagrams: 10/22/17 00:04 10/22/17 00:04 Lab Results 10/22/17 10/22/17 10/22/17 Range/Units 00:04 00:04 00:04 WBC 10.1 (4.3-11.1) K/mcL RBC 4.61 (4.19-5.50) M/mcL Hgb 15.1 (12.9-16.9) g/dL Hct 44.6 (37.5-50.1) % MCV 96.7 (83.0-100.0) fL MCH 32.8 (28.0-33.3) pg MCHC 33.9 (31.6-35.5) g/dL RDW 12.1 (11.5-14.5) % Plt Count 202 (140-400) K/mcL MPV 10.0 (9.4-12.4) fL Immature Gran % 0.3 (0-4) % Seg Neutrophils % 80.1 % Lymphocytes % 7.8 % Monocytes % 6.1 % Eosinophils % 5.3 % Basophils % 0.4 % Neutrophils # 8.1 (1.6-8.9) K/mcL Lymphocytes # 0.8 (0.6-4.6) K/mcL Monocytes # 0.6 (0.0-1.3) K/mcL Eosinophils # 0.5 (0.0-0.6) K/mcL Basophils # 0.0 (0.0-0.2) K/mcL Sodium 138 (136-145) mEq/L Potassium 4.0 (3.5-5.1) mEq/L Chloride 102 (98-107) mEq/L Carbon Dioxide 28 (23-29) mEq/L BUN 11 (8-23) mg/dL Creatinine 0.79 (0.70-1.30) mg/dL Est GFR ( Amer) > 60 (> 60) Est GFR (Non-Af Amer) > 60 (> 60) BUN/Creatinine Ratio 14 (6-26) Glucose 101 (70-105) mg/dL Calculated Osmolality 286 (280-300) Calcium 9.1 (8.6-10.3) mg/dL Troponin I < 0.03 (< 0.04) ng/mL B-Natriuretic Peptide (Less than 100) pg/mL 10/22/17 Range/Units 00:04 WBC (4.3-11.1) K/mcL RBC (4.19-5.50) M/mcL Hgb (12.9-16.9) g/dL Hct (37.5-50.1) % MCV (83.0-100.0) fL MCH (28.0-33.3) pg MCHC (31.6-35.5) g/dL RDW (11.5-14.5) % Plt Count (140-400) K/mcL MPV (9.4-12.4) fL Immature Gran % (0-4) % Seg Neutrophils % % Lymphocytes % % Monocytes % % Eosinophils % % Basophils % % Neutrophils # (1.6-8.9) K/mcL Lymphocytes # (0.6-4.6) K/mcL Monocytes # (0.0-1.3) K/mcL Eosinophils # (0.0-0.6) K/mcL Basophils # (0.0-0.2) K/mcL Sodium (136-145) mEq/L Potassium (3.5-5.1) mEq/L Chloride (98-107) mEq/L Carbon Dioxide (23-29) mEq/L BUN (8-23) mg/dL Creatinine (0.70-1.30) mg/dL Est GFR ( Amer) (> 60) Est GFR (Non-Af Amer) (> 60) BUN/Creatinine Ratio (6-26) Glucose (70-105) mg/dL Calculated Osmolality (280-300) Calcium (8.6-10.3) mg/dL Troponin I (< 0.04) ng/mL B-Natriuretic Peptide 76 (Less than 100) pg/mL Attestation Statement - Attestation Attestation: I examined this patient and my medical decision-making was reviewed with the Resident Physician. I agree with the documented findings, disposition and treatment plan as described except to the extent set forth below. Dyspnea. CT scan negative for pulmonary embolism. Will admit for COPD exacerbation. Patient has no access to home oxygen. No hypoxia at time of admission.
[2017-10-22] MEDS ORDERED: Ipratropium/Albuterol Neb 3 ML IH PRN (02:04)
[2017-10-22] MEDS ORDERED: Naloxone 0.4 MG/ML INJ IVP PRN (02:05)
--- NOTE | 2017-10-22 02:11 | Internal Med History&Physical ---
Date of Encounter: 10/22/17 Time of Encounter: 02:09 Assessment and Plan (1) COPD exacerbation Current visit: Yes Status: Acute IV antibiotics, iv steroids, duonebs send rvp wean oxygen as able (2) Hypoxia Current visit: Yes Status: Acute treat above (3) Prostate cancer Current visit: No Status: Chronic chronic illness Internal Medicine - H&P: HPI Chief complaint: SOB History of present illness: Mr. Brown is a 77 year old male who presents with acute onset SOB. He reports having subacute symptoms for approx 1 week now but today, he over- exerted himself while working on the generator causing progressively worse SOB that is improved with rest and worse with exertion. He reports coughing and yellow sputum production in the last week. The duonebs he received in the ED helped tremendously He has a hx of COPD, quit smoking 5 years ago, prostate cancer getting lupron. EKG personally reviewed with rate 109, NSR CT/CT angio chest IMPRESSION: No evidence of pulmonary embolism or acute pulmonary abnormality. Cardiomegaly Emphysema Past Med Surg Social Fam HX - Past Medical History Medical history: cancer, COPD Psychiatric history: no psych history - Past Surgical History Surgical History: angioplasty/stent (1 stent in aorta) - Social History Smoking Status: Former smoker Smokeless Tobacco Status: No Alcohol use: occasionally Drug use: none - Family History Father Family Member Ethnicity: Non- Living Status: Hx Family Cardiac Disorders: Yes (DC) Mother Family Member Ethnicity: Non- Living Status: Hx Family Cancer: Yes (Leukemia) Sister Family Member Ethnicity: Non- Living Status: Hx Family Cardiac Disorders: Yes (CHF) Internal Medicine - H&P: Meds Albuterol Sulfate [Albuterol Inhaler] 2 puff IH Q4-6H PRN 08/24/17 [History] Aspirin 325 mg PO DAILY 08/24/17 [History] Atorvastatin [Lipitor] 40 mg PO QPM 08/24/17 [History] Budesonide/Formoterol 160/4.5 [Symbicort 160/4.5] 2 puff IH BID 08/24/17 [ History] Cholecalciferol (D-3) [Vitamin D] 10,000 unit PO QWEEK 08/24/17 [History] Multivit-Min/FA/Lycopen/Lutein [A Thru Z Select Multivit Tab] 1 tab PO DAILY [History] Nitroglycerin [Nitrostat] 0.4 mg SL Q5M PRN 08/24/17 [History] Vitamin E 100 unit PO DAILY 08/24/17 [History] Tamsulosin [Flomax] 0.4 mg PO DAILY #30 cap.er.24h 08/25/17 [Rx] 3 Allergy/AdvReac Type Severity Reaction Status Date / Time Sulfa (Sulfonamide AdvReac Shakiness Verified 08/24/17 12:09 Antibiotics) All Systems PM: A 10-system review of systems was performed and is negative for pertinent findings except as documented above in the HPI. Review of systems: ROS 14 point review of systems reviewed as best as possible given presentation. Pertinent positive or negative as per HPI or otherwise reviewed as negative - Constitutional Vitals: Temp Pulse Resp BP Pulse Ox 98.4 F 103 20 147/97 95 10/21/17 23:55 10/22/17 01:42 10/22/17 02:07 10/22/17 02:07 10/22/17 01:42 Exam: General - AAO x 3 Psych - Appropriate affect/speech. No agitation Eyes - TONE. Eye lids intact. No scleral icterus Neuro - No gross peripheral or central neuro deficits on inspection Heart - Sinus tachycardia. RRR. S1 and S2 present. No added HS/murmurs appreciated. No elevated JVD appreciated. Lung - Decreased air entry b/l, No crackles/wheezes appreciated due to lack of air movement GI - Soft, non-tender. No hepatosplenomegaly/ascites. BS+ - No CVA/suprapubic tenderness or palpable bladder distension Skin - Intact. No rash/petechiae/ecchymosis. Warm extremities MSK - Joints with normal ROM. No joint swellings Internal Med - H&P Results - Labs CBC & Chem 7: 10/22/17 00:04 10/22/17 00:04
[2017-10-22] MEDS ORDERED: 0.9 % Sodium Chloride 1,000 ML IVC SCH (02:15)
[2017-10-22] MEDS: Azithromycin 500 MG in D5% in Water 250 ML IVPB SCH (03:12)
[2017-10-22] MEDS: Ipratropium/Albuterol Neb 3 ML IH SCH ×4 (03:48→22:23)
[2017-10-22] MEDS: MethylPREDNISolone 40 MG/ML VIAL IVP SCH ×3 (05:23→21:01)
[2017-10-22] MEDS ORDERED: *HR* Enoxaparin 30 MG/0.3 ML SYRINGE SQ SCH (06:00)
[2017-10-22 06:53] LABS: Adenovirus Not Detected (Not Detect); Bordetella Pertussis Not Detected (Not Detect); Chlamydophila pneumoniae Not Detected (Not Detect); Coronavirus 229E Not Detected (Not Detect); Coronavirus HKU1 Not Detected (Not Detect); Coronavirus NL63 Not Detected (Not Detect); Coronavirus OC43 Not Detected (Not Detect); Human Metapneumovirus Not Detected (Not Detect); Human Rhinovirus/Enterovirus Not Detected (Not Detect); Influenza A Subtype 2009 H1 Not Detected (Not Detect); Influenza A Untypeable Not Detected (Not Detect); Influenza B Not Detected (Not Detect); Mycoplasma pneumoniae Not Detected (Not Detect); Parainfluenza Virus 1 Not Detected (Not Detect); Parainfluenza Virus 2 Not Detected (Not Detect); Parainfluenza Virus 3 Not Detected (Not Detect); Parainfluenza Virus 4 Not Detected (Not Detect); Respiratory Syncytial Virus Not Detected (Not Detect)
[2017-10-22] MEDS: Aspirin 325 MG TABLET PO SCH (08:31)
[2017-10-22] MEDS: Cholecalciferol (D-3) 1,000 UNIT TABLET PO SCH (08:31)
[2017-10-22] MEDS: Budesonide/Formoterol 160/4.5 MDI IH SCH ×2 (10:06→22:24)
--- NOTE | 2017-10-22 15:24 | Internal Med Progress Note ---
Date of Encounter: 10/22/17 Time of Encounter: 12:20 - Assessment and plan (1) Acute respiratory failure with hypoxia Current Visit: Yes Status: Acute Assessment and plan: Due to COPD exacerbation Improving slowly may need home O2 eval will start tapering steroids cont empirical abx Azithromycin Cont Duoneb JORGITO (2) Acute bronchitis Current Visit: Yes Status: Acute Assessment and plan: purulent..mostly bacterial Improving cont empirical abx reviewed CXR - no consolidations Qualifiers: Qualified Code(s): J20.9 - Acute bronchitis, unspecified (3) COPD exacerbation Current Visit: Yes Status: Acute Assessment and plan: Improving cont supportive and symptomatic care (4) Prostate cancer Current Visit: No Status: Chronic Assessment and plan: need to f/u with Urology / Heme Onc as an out pt - Subjective Interval history: Mr. Brown is a 77 year old male with known PMH of COPD, not on home O2 dependent, HTN, HLD and prostate cancer pt presented to ER with progressively worsening SOB and cough with yellowish expectoration. he denied any CP. Pt states he is feeling little better today, wants to go home. He is still on 2 lit O2. Cough + - Constitutional Vitals: Temp Pulse Resp BP Pulse Ox 98.0 F 96 14 166/83 91 10/22/17 14:57 10/22/17 14:57 10/22/17 14:57 10/22/17 14:57 10/22/17 15:10 General appearance: Present: A&O X 3, no acute distress, answers questions appropriately - Head Head exam: Present: atraumatic, normal inspection - Neck Neck exam general surgery: Present: supple - Respiratory Respiratory exam: Present: decreased breath sounds, wheezes (moderate). Absent : rales, respiratory distress, rhonchi - Cardiovascular Cardiovascular exam: Present: RRR, +S1, +S2. Absent: tachycardia - GI/Abdominal GI/Abdominal exam: Present: normal bowel sounds, soft. Absent: rebound, rigid, tenderness - Extremities Exam Extremities exam: Absent: calf tenderness, pedal edema, tenderness - Back Exam Back exam: Absent: CVA tenderness (L), CVA tenderness (R) - Psychiatric Psychiatric exam: Present: normal affect, normal mood - Skin Skin exam: Absent: rash Internal Medicine: Result - Labs CBC & Chem 7: 10/22/17 00:04 10/22/17 00:04 Consult Discharge Plan - Plan Referrals: Alexis Avila MD [Primary Care Provider] -
[2017-10-23] MEDS: Azithromycin 500 MG in D5% in Water 250 ML IVPB SCH (02:28)
[2017-10-23] MEDS: Ipratropium/Albuterol Neb 3 ML IH SCH ×2 (04:11→10:42)
[2017-10-23] MEDS ORDERED: *HR* Enoxaparin 40 MG/0.4 ML SYRINGE SQ SCH (06:00)
[2017-10-23] MEDS: Aspirin 325 MG TABLET PO SCH (10:10)
[2017-10-23] MEDS: Cholecalciferol (D-3) 1,000 UNIT TABLET PO SCH (10:10)
[2017-10-23] MEDS: MethylPREDNISolone 40 MG/ML VIAL IVP SCH (10:11)
[2017-10-23] MEDS: Budesonide/Formoterol 160/4.5 MDI IH SCH (10:42)
--- NOTE | 2017-10-23 11:17 | Discharge Summary ---
Date of Encounter: 10/23/17 Time of Encounter: 11:15 - Discharge Diagnosis (1) Acute respiratory failure with hypoxia Priority: Primary Status: Acute (2) Acute bronchitis Priority: Primary Status: Acute Qualifiers: Qualified Code(s): J20.9 - Acute bronchitis, unspecified (3) COPD exacerbation Priority: Primary Status: Acute (4) Prostate cancer Priority: Secondary Status: Chronic - Discharge Medications Prescriptions: GuaiFENesin ER [Mucinex] 600 mg PO BID PRN #15 tbbp.12hr PRN Reason: Congestion levoFLOXacin [Levaquin] 500 mg PO DAILY #3 tablet predniSONE [PredniSONE] 40 mg PO DAILY #10 tablet Home Medications: Albuterol Sulfate [Albuterol Inhaler] 2 puff IH Q4-6H PRN 08/24/17 [History] Aspirin 81 mg PO DAILY 08/24/17 [History] Atorvastatin [Lipitor] 40 mg PO QPM 08/24/17 [History] Budesonide/Formoterol 160/4.5 [Symbicort 160/4.5] 2 puff IH BID 08/24/17 [ History] Cholecalciferol (D-3) [Vitamin D] 1,000 units PO DAILY 08/24/17 [History] Multivit-Min/FA/Lycopen/Lutein [A Thru Z Select Multivit Tab] 1 tab PO DAILY [History] Nitroglycerin [Nitrostat] 0.4 mg SL Q5M PRN 08/24/17 [History] Vitamin E 100 unit PO DAILY 08/24/17 [History] GuaiFENesin ER [Mucinex] 600 mg PO BID PRN #15 tbbp.12hr 10/23/17 [Rx] levoFLOXacin [Levaquin] 500 mg PO DAILY #3 tablet 10/23/17 [Rx] predniSONE [PredniSONE] 40 mg PO DAILY #10 tablet 10/23/17 [Rx] Allergies/Adverse Reactions: 3 Allergy/AdvReac Type Severity Reaction Status Date / Time Sulfa (Sulfonamide AdvReac Shakiness Verified 08/24/17 12:09 Antibiotics) Date of admission: 10/22/17 02:05 Primary care physician: Alexis Avila MD Consults: 10/22/17 03:30 Consult to Enterprise Architect Manager [CONS] Routine Reason for SW Consult: Will likely DC with home O2 - Patient Status Disposition: Home, Self-Care Condition: Good Overall status at discharge: patient is back to baseline - Discharge Instructions Follow Up With: Alexis Avila MD [Primary Care Provider] - - Diet and Activity Activity: increase activity as tolerated, wear oxygen at all times (2 lit at resting and sleeping.. 4 lit with ambulation / physical activity) Diet: low salt diet Hospital course: Mr. Brown is a 77 year old male with known PMH of COPD, not on home O2 dependent, HTN, HLD and prostate cancer pt presented to ER with progressively worsening SOB and cough with yellowish expectoration. he denied any CP. Pt was started on empirical abx Azithromycin and high dose iV steroids. His symptoms started improving. He is still on 2 lit O2 at resting. He feels like he is back to baseline and wants to go home. pt is very active at home, so we did ambulating pulse oxy study, he does require 4 lit O2 with ambulation and 2 lit at rest as well as during sleep. So will d/c him home today in stable condition with home O2 and tapering dose steroids. - Time Spent with Patient Total time spent providing and/or coordinating discharge services: - Constitutional Vitals: Temp Pulse Resp BP Pulse Ox 97.6 F 92 16 160/83 92 10/23/17 07:27 10/23/17 07:27 10/23/17 10:52 10/23/17 07:27 10/23/17 10:52 General appearance: Present: A&O X 3, no acute distress, answers questions appropriately - Head Head exam: Present: atraumatic, normal inspection - Neck Neck exam general surgery: Present: supple - Respiratory Respiratory exam: Present: decreased breath sounds, wheezes (moderate). Absent : rales, respiratory distress, rhonchi - Cardiovascular Cardiovascular exam: Present: RRR, +S1, +S2. Absent: tachycardia - GI/Abdominal GI/Abdominal exam: Present: soft. Absent: rebound, rigid, tenderness - Extremities Exam Extremities exam: Absent: calf tenderness, pedal edema, tenderness - Back Exam Back exam: Absent: CVA tenderness (L), CVA tenderness (R) - Psychiatric Psychiatric exam: Present: normal affect, normal mood
[2017-10-23 11:37] VITALS: BP 167/80
--- NOTE | 2017-10-24 15:25 | Electrocardiograph Report ---
[place] [id number] Test Date: 2017-10-21 Pat Name: Gume Brown Department: 104 Room: [id number] Gender: M Credit Collector: MISSY : [id number] Requested By: Angel Bustos Order Number: [id number] Reading MD: Caro Carpenter Measurements Intervals [place] Rate: 109 P: 64 FL: 144 QRS: -11 QRSD: 81 T: 89 QT: 350 QTc: 414 Interpretive Statements SINUS TACHYCARDIA NONSPECIFIC T-WAVE ABNORMALITY ABNORMAL RHYTHM ECG Electronically Signed On 10-24-2017 15:23:42 EST by Caro Carpenter
== END 2017-10-23 14:07 | disposition home or self-care (01) | DRG 190 ==
LOC: EMEROO 23:54 → 2NENU 23:54 → SUATTDRO 10-22 02:05 → 2NENU 10-22 02:08
PROVIDERS: ADMIT Internal Medicine Hematology & Oncology; ATTEND Internal Medicine

== ENCOUNTER 2022-01-03 10:46 | Inpatient (IN) ==
[2022-01-03] MEDS ORDERED: Isovue-370 500 ML BOTTLE IVP ONE (11:06)
[2022-01-03 11:28] LABS: Hematocrit 37.6 % (37.5-50.1); Hemoglobin 12.3 g/dL (12.9-16.9); Mean Corpuscular HGB Conc 32.7 g/dL (31.6-35.5); Mean Corpuscular Hemoglobin 31.1 pg (28.0-33.3); Mean Corpuscular Volume 94.9 fL (83.0-100.0); Mean Platelet Volume 10.1 fL (9.4-12.4); Platelet Count 205 K/mcL (140-400); Red Blood Count 3.96 M/mcL (4.19-5.50); Red Cell Distribution Width 13.6 % (11.5-14.5); White Blood Count 7.3 K/mcL (4.3-11.1)
[2022-01-03 11:47] LABS: BUN/Creatinine Ratio 16 (6-26); Blood Urea Nitrogen 12 mg/dL (8-23); Calcium 9.2 mg/dL (8.6-10.3); Carbon Dioxide 32 mEq/L (23-29); Chloride 95 mEq/L (98-107); Glucose 99 mg/dL (70-105); Osmolality,Calculated 278 (280-300); Sodium 134 mEq/L (136-145); eGFR For African Americans > 60 (> 60); eGFR For Non-African Americans > 60 (> 60)
[2022-01-03] MEDS ORDERED: Ipratropium/Albuterol Neb 3 ML IH ONE (13:23)
[2022-01-03] MEDS ORDERED: methylPREDNISolone 125 MG/2 ML VIAL IVP ONE (13:24)
[2022-01-03] MEDS ORDERED: Piperacillin/Tazobactam 3.375 GM in 0.9 % Sodium Chloride Mini Bag 100 ML IVPB ONE (13:57)
[2022-01-03] MEDS ORDERED: Ondansetron 4 MG/2 ML VIAL IVP PRN (17:43)
[2022-01-03] MEDS ORDERED: Naloxone 0.4 MG/ML INJ IVP PRN (17:43)
[2022-01-03] MEDS: *HR* Heparin 5,000 UNIT/ML VIAL SQ SCH (18:38)
[2022-01-03] MEDS ORDERED: *HR* Metoprolol 5 MG/5 ML VIAL IVP ONE (19:01)
[2022-01-03] MEDS: Budesonide/Formoterol 160/4.5 1 PUFF INH IH SCH (20:35)
[2022-01-03] MEDS: Ipratropium/Albuterol Neb 3 ML IH SCH ×2 (20:35→23:26)
[2022-01-03] MEDS: Metoprolol XL (24 HR) Succ 25 MG TAB.ER.24H PO SCH (22:17)
[2022-01-03] MEDS: Piperacillin/Tazobactam 3.375 GM in 0.9 % Sodium Chloride Mini Bag 100 ML IVPB SCH (23:38)
[2022-01-03] MEDS: Menthol 1 EACH LOZENGE PO PRN (23:38)
[2022-01-04] MEDS ORDERED: Chloraseptic Spray 177 ML BOTTLE MM PRN (03:11)
[2022-01-04] MEDS: Ipratropium/Albuterol Neb 3 ML IH SCH ×3 (03:55→11:00)
[2022-01-04 04:18] LABS: Hematocrit 36.3 % (37.5-50.1); Hemoglobin 11.7 g/dL (12.9-16.9); Immature Granulocytes % 0.5 % (0-4); Lymphocytes # 0.4 K/mcL (0.6-4.6); Lymphocytes % 10.1 %; Mean Corpuscular HGB Conc 32.2 g/dL (31.6-35.5); Mean Corpuscular Hemoglobin 30.8 pg (28.0-33.3); Mean Corpuscular Volume 95.5 fL (83.0-100.0); Mean Platelet Volume 10.3 fL (9.4-12.4); Monocytes # 0.4 K/mcL (0.0-1.3); Monocytes % 8.5 %; Neutrophils # 3.4 K/mcL (1.6-8.9); Platelet Count 196 K/mcL (140-400); Red Cell Distribution Width 13.6 % (11.5-14.5); Segmented Neutrophils % 80.9 %; White Blood Count 4.1 K/mcL (4.3-11.1)
[2022-01-04 04:35] LABS: BUN/Creatinine Ratio 18 (6-26); Blood Urea Nitrogen 12 mg/dL (8-23); Carbon Dioxide 29 mEq/L (23-29); Chloride 97 mEq/L (98-107); Glucose 138 mg/dL (70-105); Magnesium 1.9 mg/dL (1.6-2.6); Osmolality,Calculated 280 (280-300); Phosphorous 3.1 mg/dL (2.7-4.5); Sodium 134 mEq/L (136-145); eGFR For African Americans > 60 (> 60); eGFR For Non-African Americans > 60 (> 60)
[2022-01-04] MEDS: *HR* Heparin 5,000 UNIT/ML VIAL SQ SCH ×2 (05:54→17:19)
[2022-01-04] MEDS: Budesonide/Formoterol 160/4.5 1 PUFF INH IH SCH ×2 (08:03→19:36)
[2022-01-04] MEDS ORDERED: Perflutren Lipid Microsphere 1.3 ML in 0.9 % Sodium Chloride 8.7 ML IVP PRN (08:16)
[2022-01-04] MEDS: predniSONE 20 MG TABLET PO SCH (08:51)
[2022-01-04] MEDS: Metoprolol XL (24 HR) Succ 25 MG TAB.ER.24H PO SCH (08:51)
[2022-01-04] MEDS: Piperacillin/Tazobactam 3.375 GM in 0.9 % Sodium Chloride Mini Bag 100 ML IVPB SCH ×3 (08:51→21:50)
[2022-01-04 09:44] LABS: Thyroid Stimulating Hormone 0.488 mcIU/mL (0.340-5.600)
[2022-01-04] MEDS ORDERED: Metoprolol XL (24 HR) Succ 25 MG TAB.ER.24H PO ONE (12:00)
[2022-01-04] MEDS: Levalbuterol Neb 1.25 MG/3 ML IH SCH ×3 (14:42→19:36)
[2022-01-04] MEDS ORDERED: Melatonin 3 MG TABLET PO STA (21:06)
[2022-01-05] MEDS: Menthol 1 EACH LOZENGE PO PRN (02:56)
[2022-01-05] MEDS: Levalbuterol Neb 1.25 MG/3 ML IH SCH ×4 (03:43→23:11)
[2022-01-05] MEDS: *HR* Heparin 5,000 UNIT/ML VIAL SQ SCH (05:00)
[2022-01-05] MEDS: Piperacillin/Tazobactam 3.375 GM in 0.9 % Sodium Chloride Mini Bag 100 ML IVPB SCH (05:00)
[2022-01-05 05:51] LABS: Basophils % 0.2 %; Eosinophils % 0.1 %; Hematocrit 36.2 % (37.5-50.1); Hemoglobin 11.6 g/dL (12.9-16.9); Immature Granulocytes % 0.8 % (0-4); Lymphocytes # 1.4 K/mcL (0.6-4.6); Lymphocytes % 13.3 %; Mean Corpuscular Hemoglobin 31.1 pg (28.0-33.3); Mean Corpuscular Volume 97.1 fL (83.0-100.0); Mean Platelet Volume 10.4 fL (9.4-12.4); Monocytes # 1.5 K/mcL (0.0-1.3); Monocytes % 13.8 %; Neutrophils # 7.5 K/mcL (1.6-8.9); Platelet Count 211 K/mcL (140-400); Red Blood Count 3.73 M/mcL (4.19-5.50); Red Cell Distribution Width 14.1 % (11.5-14.5); Segmented Neutrophils % 71.8 %
[2022-01-05 05:52] LABS: White Blood Count 10.5 K/mcL (4.3-11.1)
[2022-01-05 06:13] LABS: BUN/Creatinine Ratio 19 (6-26); Blood Urea Nitrogen 15 mg/dL (8-23); Calcium 9.4 mg/dL (8.6-10.3); Carbon Dioxide 32 mEq/L (23-29); Chloride 97 mEq/L (98-107); Glucose 97 mg/dL (70-105); Magnesium 1.9 mg/dL (1.6-2.6); Osmolality,Calculated 285 (280-300); Phosphorous 3.9 mg/dL (2.7-4.5); Potassium 4.1 mEq/L (3.5-5.1); Sodium 137 mEq/L (136-145); eGFR For African Americans > 60 (> 60); eGFR For Non-African Americans > 60 (> 60)
[2022-01-05] MEDS: Budesonide/Formoterol 160/4.5 1 PUFF INH IH SCH ×2 (07:38→23:12)
[2022-01-05] MEDS: Metoprolol XL (24 HR) Succ 50 MG TAB.ER.24H PO SCH (07:53)
[2022-01-05] MEDS: predniSONE 20 MG TABLET PO SCH (07:53)
[2022-01-05] MEDS ORDERED: Metoprolol XL (24 HR) Succ 25 MG TAB.ER.24H PO ONE ×2 (10:34→11:20)
[2022-01-05] MEDS: Furosemide 40 MG/4 ML VIAL IVP SCH ×2 (12:13→16:49)
[2022-01-05] MEDS: Apixaban 5 MG TABLET PO SCH ×2 (12:13→20:59)
[2022-01-05] MEDS: cephALEXin 500 MG CAPSULE PO SCH ×2 (13:59→20:59)
[2022-01-05] MEDS: Acetaminophen 325 MG TABLET PO PRN (13:59)
[2022-01-05] MEDS: Doxycycline 100 MG CAPSULE PO SCH (20:59)
[2022-01-06] MEDS: Levalbuterol Neb 1.25 MG/3 ML IH SCH ×4 (03:49→19:58)
[2022-01-06] MEDS: Acetaminophen 325 MG TABLET PO PRN (04:04)
[2022-01-06] MEDS: Budesonide/Formoterol 160/4.5 1 PUFF INH IH SCH ×2 (07:49→19:58)
[2022-01-06] MEDS: Apixaban 5 MG TABLET PO SCH ×2 (08:13→20:59)
[2022-01-06] MEDS: Doxycycline 100 MG CAPSULE PO SCH (08:13)
[2022-01-06] MEDS: predniSONE 20 MG TABLET PO SCH (08:13)
[2022-01-06] MEDS: Metoprolol XL (24 HR) Succ 50 MG TAB.ER.24H PO SCH (08:13)
[2022-01-06] MEDS: cephALEXin 500 MG CAPSULE PO SCH (08:14)
[2022-01-06] MEDS: Furosemide 40 MG/4 ML VIAL IVP SCH ×2 (08:15→16:38)
[2022-01-06] MEDS ORDERED: DilTIAZem 50 MG/50 ML IV.SOLN IVC SCH (11:45)
[2022-01-06] MEDS: DilTIAZem CD (24hr) 120 MG CAP.ER.24H PO SCH (16:37)
[2022-01-07] MEDS: Levalbuterol Neb 1.25 MG/3 ML IH SCH ×2 (03:26→07:47)
[2022-01-07] MEDS: Budesonide/Formoterol 160/4.5 1 PUFF INH IH SCH (07:48)
[2022-01-07] MEDS: Apixaban 5 MG TABLET PO SCH (09:34)
[2022-01-07] MEDS: predniSONE 20 MG TABLET PO SCH (09:34)
[2022-01-07] MEDS: DilTIAZem CD (24hr) 120 MG CAP.ER.24H PO SCH (09:34)
[2022-01-07] MEDS: Metoprolol XL (24 HR) Succ 50 MG TAB.ER.24H PO SCH (09:34)
[2022-01-07 11:08] VITALS: BP 135/79; PULSE 102; TEMP 98.7; O2SAT 96
[2022-01-07] MEDS ORDERED: DilTIAZem CD (24hr) 120 MG CAP.ER.24H PO ONE (11:11)
[2022-01-08] MEDS ORDERED: DilTIAZem CD (24hr) 120 MG CAP.ER.24H PO SCH (09:00)
== END 2022-01-07 15:27 | disposition home health service (06) | DRG 602 ==
LOC: 3BNU 10:46 → EMEROOARM 10:46 → SUATTDRO 17:58 → 3BNU 18:06 → SUATTDRO 01-04 12:35
PROVIDERS: ADMIT Student in an Organized Health Care Education/Training Program; ATTEND Registered Nurse

== ENCOUNTER 2022-02-25 09:52 | Inpatient (IN) ==
[2022-02-25] MEDS ORDERED: Ipratropium/Albuterol Neb 3 ML IH ONE ×2 (10:32→16:17)
[2022-02-25] MEDS ORDERED: methylPREDNISolone 125 MG/2 ML VIAL IVP ONE (10:32)
[2022-02-25 10:58] LABS: Basophils % 0.1 %; Eosinophils % 0.4 %; Hematocrit 37.9 % (37.5-50.1); Hemoglobin 12.5 g/dL (12.9-16.9); Immature Granulocytes % 0.6 % (0-4); Lymphocytes # 0.8 K/mcL (0.6-4.6); Lymphocytes % 9.4 %; Mean Corpuscular Hemoglobin 31.5 pg (28.0-33.3); Mean Corpuscular Volume 95.5 fL (83.0-100.0); Mean Platelet Volume 10.3 fL (9.4-12.4); Monocytes # 0.9 K/mcL (0.0-1.3); Monocytes % 11.4 %; Neutrophils # 6.4 K/mcL (1.6-8.9); Platelet Count 224 K/mcL (140-400); Red Blood Count 3.97 M/mcL (4.19-5.50); Red Cell Distribution Width 13.2 % (11.5-14.5); Segmented Neutrophils % 78.1 %; White Blood Count 8.2 K/mcL (4.3-11.1)
[2022-02-25] MEDS ORDERED: Isovue-370 500 ML BOTTLE IVP ONE (11:11)
[2022-02-25 13:15] LABS: BUN/Creatinine Ratio 17 (6-26); Blood Urea Nitrogen 12 mg/dL (8-23); Calcium 9.4 mg/dL (8.6-10.3); Carbon Dioxide 30 mEq/L (23-29); Chloride 96 mEq/L (98-107); Glucose 121 mg/dL (70-105); Osmolality,Calculated 277 (280-300); Potassium 3.9 mEq/L (3.5-5.1); Sodium 133 mEq/L (136-145); Troponin I < 0.03 ng/mL (< 0.04); eGFR For African Americans > 60 (> 60); eGFR For Non-African Americans > 60 (> 60)
[2022-02-25 13:29] LABS: Influenza A PCR Negative (Negative); Influenza B PCR Negative (Negative); Resp. Syncytial Virus PCR Negative (Negative); SARS-CoV-2 by PCR (In House) Negative (Negative)
[2022-02-25] MEDS ORDERED: *HR* LORazepam 1 MG TABLET PO STA (14:15)
[2022-02-25] MEDS ORDERED: Furosemide 40 MG/4 ML VIAL IVP ONE (16:02)
[2022-02-25] MEDS ORDERED: Ondansetron 4 MG/2 ML VIAL IVP PRN (16:17)
[2022-02-25] MEDS ORDERED: Acetaminophen 325 MG TABLET PO PRN (16:17)
[2022-02-25] MEDS ORDERED: Naloxone 0.4 MG/ML INJ IVP PRN (16:17)
[2022-02-25] MEDS ORDERED: Ipratropium/Albuterol Neb 3 ML IH PRN (16:22)
[2022-02-25] MEDS: DilTIAZem CD (24hr) 240 MG CAP.ER.24H PO SCH (18:06)
[2022-02-25] MEDS: Doxycycline 100 MG in 0.9 % Sodium Chloride Mini Bag 100 ML IVPB SCH (18:07)
[2022-02-25] MEDS: Levalbuterol Neb 1.25 MG/3 ML IH SCH ×2 (18:25→20:19)
[2022-02-25] MEDS ORDERED: Apixaban 5 MG TABLET PO SCH (21:00)
[2022-02-26] MEDS: Levalbuterol Neb 1.25 MG/3 ML IH SCH ×4 (04:14→20:05)
[2022-02-26] MEDS: Doxycycline 100 MG in 0.9 % Sodium Chloride Mini Bag 100 ML IVPB SCH ×2 (05:17→17:30)
[2022-02-26 05:48] LABS: Basophils % 0.2 %; Hematocrit 34.6 % (37.5-50.1); Hemoglobin 11.7 g/dL (12.9-16.9); Immature Granulocytes % 0.8 % (0-4); Lymphocytes # 0.6 K/mcL (0.6-4.6); Lymphocytes % 8.6 %; Mean Corpuscular HGB Conc 33.8 g/dL (31.6-35.5); Mean Corpuscular Hemoglobin 31.6 pg (28.0-33.3); Mean Corpuscular Volume 93.5 fL (83.0-100.0); Mean Platelet Volume 10.3 fL (9.4-12.4); Monocytes # 0.8 K/mcL (0.0-1.3); Monocytes % 12.1 %; Neutrophils # 5.2 K/mcL (1.6-8.9); Platelet Count 203 K/mcL (140-400); Red Cell Distribution Width 13.2 % (11.5-14.5); Segmented Neutrophils % 78.3 %; White Blood Count 6.6 K/mcL (4.3-11.1)
[2022-02-26 06:14] LABS: BUN/Creatinine Ratio 21 (6-26); Blood Urea Nitrogen 16 mg/dL (8-23); Calcium 9.3 mg/dL (8.6-10.3); Carbon Dioxide 28 mEq/L (23-29); Chloride 96 mEq/L (98-107); Chol/HDL Ratio 2.4 (0-4.9); Cholesterol 126 mg/dL (< 200); Glucose 123 mg/dL (70-105); HDL Cholesterol 53 mg/dL (40-59); LDL Cholesterol,Calculated 57 mg/dL (< 100); Magnesium 1.8 mg/dL (1.6-2.6); Osmolality,Calculated 281 (280-300); Potassium 4.1 mEq/L (3.5-5.1); Sodium 134 mEq/L (136-145); Triglycerides 78 mg/dL (< 150); eGFR For African Americans > 60 (> 60); eGFR For Non-African Americans > 60 (> 60)
[2022-02-26] MEDS ORDERED: Famotidine 20 MG TABLET PO PRN (07:35)
[2022-02-26] MEDS: DilTIAZem CD (24hr) 240 MG CAP.ER.24H PO SCH (10:01)
[2022-02-26] MEDS: Cholecalciferol (D-3) 1,000 UNIT (25MCG) TABLET PO SCH (10:01)
[2022-02-26] MEDS: Cyanocobalamin (B-12) 1,000 MCG TABLET PO SCH (10:01)
[2022-02-26] MEDS: Ascorbic Acid 500 MG TABLET PO SCH (10:01)
[2022-02-26] MEDS: amLODIPine 5 MG TABLET PO SCH (10:01)
[2022-02-26] MEDS: MethylPREDNISolone 40 MG/ML VIAL IVP SCH ×2 (10:02→17:30)
[2022-02-26] MEDS: Furosemide 40 MG/4 ML VIAL IVP SCH (10:02)
[2022-02-26] MEDS: Metoprolol XL (24 HR) Succ 50 MG TAB.ER.24H PO SCH (10:03)
[2022-02-26] MEDS: Budesonide/Formoterol 160/4.5 1 PUFF INH IH SCH ×2 (10:25→20:05)
[2022-02-26] MEDS: *HR* Heparin 5,000 UNIT/ML VIAL SQ SCH (17:29)
[2022-02-27] MEDS: Levalbuterol Neb 1.25 MG/3 ML IH SCH ×4 (03:58→22:40)
[2022-02-27] MEDS: Doxycycline 100 MG in 0.9 % Sodium Chloride Mini Bag 100 ML IVPB SCH ×2 (04:46→17:02)
[2022-02-27] MEDS: MethylPREDNISolone 40 MG/ML VIAL IVP SCH ×2 (04:47→17:03)
[2022-02-27] MEDS: *HR* Heparin 5,000 UNIT/ML VIAL SQ SCH ×2 (04:49→17:02)
[2022-02-27 06:20] LABS: Basophils % 0.1 %; Hematocrit 35.5 % (37.5-50.1); Hemoglobin 11.7 g/dL (12.9-16.9); Immature Granulocytes % 0.8 % (0-4); Lymphocytes # 0.5 K/mcL (0.6-4.6); Lymphocytes % 6.2 %; Mean Corpuscular Hemoglobin 31.2 pg (28.0-33.3); Mean Corpuscular Volume 94.7 fL (83.0-100.0); Mean Platelet Volume 10.1 fL (9.4-12.4); Monocytes # 0.4 K/mcL (0.0-1.3); Monocytes % 5.5 %; Platelet Count 217 K/mcL (140-400); Red Blood Count 3.75 M/mcL (4.19-5.50); Red Cell Distribution Width 13.4 % (11.5-14.5); Segmented Neutrophils % 87.4 %
[2022-02-27 06:40] LABS: BUN/Creatinine Ratio 29 (6-26); Blood Urea Nitrogen 24 mg/dL (8-23); Calcium 9.7 mg/dL (8.6-10.3); Carbon Dioxide 31 mEq/L (23-29); Chloride 95 mEq/L (98-107); Glucose 164 mg/dL (70-105); Osmolality,Calculated 286 (280-300); Potassium 4.3 mEq/L (3.5-5.1); Sodium 134 mEq/L (136-145); eGFR For African Americans > 60 (> 60); eGFR For Non-African Americans > 60 (> 60)
[2022-02-27] MEDS: Budesonide/Formoterol 160/4.5 1 PUFF INH IH SCH ×2 (07:28→22:40)
[2022-02-27] MEDS: Ascorbic Acid 500 MG TABLET PO SCH (10:11)
[2022-02-27] MEDS: Cholecalciferol (D-3) 1,000 UNIT (25MCG) TABLET PO SCH (10:11)
[2022-02-27] MEDS: Cyanocobalamin (B-12) 1,000 MCG TABLET PO SCH (10:11)
[2022-02-27] MEDS: DilTIAZem CD (24hr) 240 MG CAP.ER.24H PO SCH (10:11)
[2022-02-27] MEDS: Furosemide 40 MG/4 ML VIAL IVP SCH (10:11)
[2022-02-27] MEDS: amLODIPine 5 MG TABLET PO SCH (10:11)
[2022-02-27] MEDS: Metoprolol XL (24 HR) Succ 50 MG TAB.ER.24H PO SCH (10:11)
[2022-02-28] MEDS: Levalbuterol Neb 1.25 MG/3 ML IH SCH ×2 (03:55→10:35)
[2022-02-28] MEDS: *HR* Heparin 5,000 UNIT/ML VIAL SQ SCH (06:21)
[2022-02-28] MEDS: MethylPREDNISolone 40 MG/ML VIAL IVP SCH (06:21)
[2022-02-28] MEDS: Doxycycline 100 MG in 0.9 % Sodium Chloride Mini Bag 100 ML IVPB SCH (06:22)
[2022-02-28] MEDS: DilTIAZem CD (24hr) 240 MG CAP.ER.24H PO SCH (08:51)
[2022-02-28] MEDS: Metoprolol XL (24 HR) Succ 50 MG TAB.ER.24H PO SCH (08:51)
[2022-02-28] MEDS: amLODIPine 5 MG TABLET PO SCH (08:51)
[2022-02-28] MEDS: Ascorbic Acid 500 MG TABLET PO SCH (08:52)
[2022-02-28] MEDS: Cyanocobalamin (B-12) 1,000 MCG TABLET PO SCH (08:52)
[2022-02-28] MEDS: Cholecalciferol (D-3) 1,000 UNIT (25MCG) TABLET PO SCH (08:52)
[2022-02-28] MEDS ORDERED: Furosemide 40 MG TABLET PO SCH (09:15)
[2022-02-28] MEDS: Furosemide 40 MG/4 ML VIAL IVP SCH (10:13)
[2022-02-28] MEDS: Budesonide/Formoterol 160/4.5 1 PUFF INH IH SCH (10:34)
[2022-02-28 11:05] VITALS: BP 111/70; PULSE 100; TEMP 98.1; O2SAT 98
== END 2022-02-28 12:00 | disposition home or self-care (01) | DRG 280 ==
LOC: EMEROOARM 09:52 → 3NENU 09:52 → SUATTDRO 16:41 → 3NENU 17:26 → SUATTDRO 02-26 14:29
PROVIDERS: ADMIT Pharmacist; ATTEND Internal Medicine

== ENCOUNTER 2022-04-01 19:52 | Inpatient (IN) ==
[2022-04-01] MEDS ORDERED: Ipratropium/Albuterol Neb 3 ML ONE (20:05)
[2022-04-01] MEDS ORDERED: methylPREDNISolone 125 MG/2 ML VIAL IVP ONE (20:07)
[2022-04-01] MEDS ORDERED: Ipratropium/Albuterol Neb 3 ML IH ONE (20:07)
[2022-04-01] MEDS ORDERED: cefTRIAXone 1,000 MG in 0.9 % Sodium Chloride 10 ML IVP ONE (20:07)
[2022-04-01] MEDS ORDERED: *HR* LORazepam 2 MG/ML VIAL IVP ONE ×2 (20:09→22:23)
[2022-04-01 20:24] LABS: Basophils % 0.2 %; Eosinophils % 0.2 %; Hematocrit 38.3 % (37.5-50.1); Hemoglobin 12.6 g/dL (12.9-16.9); Immature Granulocytes % 0.8 % (0-4); Lymphocytes # 1.1 K/mcL (0.6-4.6); Lymphocytes % 12.3 %; Mean Corpuscular HGB Conc 32.9 g/dL (31.6-35.5); Mean Corpuscular Hemoglobin 30.4 pg (28.0-33.3); Mean Corpuscular Volume 92.3 fL (83.0-100.0); Mean Platelet Volume 9.5 fL (9.4-12.4); Monocytes # 1.1 K/mcL (0.0-1.3); Monocytes % 12.4 %; Neutrophils # 6.5 K/mcL (1.6-8.9); Platelet Count 279 K/mcL (140-400); Red Blood Count 4.15 M/mcL (4.19-5.50); Red Cell Distribution Width 13.2 % (11.5-14.5); Segmented Neutrophils % 74.1 %; White Blood Count 8.7 K/mcL (4.3-11.1)
[2022-04-01 20:31] LABS: INR 1.2
[2022-04-01 20:34] LABS: Activated Partial Thrombo Time 34.4 Seconds (26.0-36.0)
[2022-04-01 20:41] LABS: Alanine Aminotransferase 22 Units/L (7-52); Albumin 3.9 g/dL (3.5-5.7); Albumin/Globulin Ratio 1.6 (1.1-2.2); Alkaline Phosphatase 88 Units/L (34-104); Aspartate Amino Transferase 21 Units/L (13-39); BUN/Creatinine Ratio 16 (6-26); Bilirubin,Direct 0.2 mg/dL (0.0-0.2); Bilirubin,Indirect 0.5 mg/dL (0.0-1.0); Bilirubin,Total 0.7 mg/dL (0.3-1.0); Blood Urea Nitrogen 14 mg/dL (8-23); Calcium 9.1 mg/dL (8.6-10.3); Carbon Dioxide 29 mEq/L (23-29); Chloride 86 mEq/L (98-107); Globulin 2.5 g/dL (2.4-3.5); Glucose 187 mg/dL (70-105); Osmolality,Calculated 265 (280-300); Potassium 4.7 mEq/L (3.5-5.1); Sodium 125 mEq/L (136-145); Total Protein 6.4 g/dL (6.4-8.9); Troponin I < 0.03 ng/mL (< 0.04); eGFR For African Americans > 60 (> 60); eGFR For Non-African Americans > 60 (> 60)
[2022-04-01 21:02] LABS: ABG Base Excess 0 mEq/L (-2 to 3); ABG HCO3 31 mEq/L (21-27); ABG Oxygen Saturation 98 % (95-98); ABG PCO2 77 mmHg (35-45); ABG PH 7.21 pH Units (7.32-7.45); ABG PO2 143 mmHg (85-104); ABG TCO2 33 mEq/L (20-26); Blood Gas Modality BiLevel; Blood Gas Pressure Support 7 cm H2O
[2022-04-01] MEDS ORDERED: Furosemide 40 MG/4 ML VIAL IVP ONE (21:08)
[2022-04-01] MEDS ORDERED: Azithromycin 500 MG in 0.9 % Sodium Chloride 250 ML IVPB ONE (21:41)
[2022-04-01 22:02] LABS: Adenovirus Not Detected (Not Detect); Bordetella Pertussis Not Detected (Not Detect); Chlamydophila pneumoniae Not Detected (Not Detect); Coronavirus 229E Not Detected (Not Detect); Coronavirus HKU1 Not Detected (Not Detect); Coronavirus NL63 Not Detected (Not Detect); Coronavirus OC43 Not Detected (Not Detect); Human Metapneumovirus Not Detected (Not Detect); Human Rhinovirus/Enterovirus Not Detected (Not Detect); Influenza A Subtype 2009 H1 Not Detected (Not Detect); Influenza B Not Detected (Not Detect); Mycoplasma pneumoniae Not Detected (Not Detect); Parainfluenza Virus 1 Not Detected (Not Detect); Parainfluenza Virus 2 Not Detected (Not Detect); Parainfluenza Virus 3 Not Detected (Not Detect); Parainfluenza Virus 4 Not Detected (Not Detect); Respiratory Syncytial Virus Not Detected (Not Detect); SARS-CoV-2 Not Detected (Not Detect)
[2022-04-01] MEDS ORDERED: *HR* LORazepam 0.5 MG TABLET PO ONE (22:23)
[2022-04-02] MEDS ORDERED: Naloxone 0.4 MG/ML INJ IVP PRN (01:36)
[2022-04-02] MEDS ORDERED: Melatonin 3 MG TABLET PO PRN (01:36)
[2022-04-02] MEDS ORDERED: Ondansetron 4 MG/2 ML VIAL IVP PRN (01:36)
[2022-04-02] MEDS ORDERED: *HR* LORazepam 2 MG/ML VIAL IVP ONE (03:35)
[2022-04-02 04:12] LABS: BUN/Creatinine Ratio 18 (6-26); Blood Urea Nitrogen 15 mg/dL (8-23); Calcium 8.6 mg/dL (8.6-10.3); Carbon Dioxide 27 mEq/L (23-29); Chloride 88 mEq/L (98-107); Glucose 133 mg/dL (70-105); Osmolality,Calculated 263 (280-300); Potassium 5.1 mEq/L (3.5-5.1); Sodium 125 mEq/L (136-145); eGFR For African Americans > 60 (> 60); eGFR For Non-African Americans > 60 (> 60)
[2022-04-02] MEDS ORDERED: Albuterol 2.5 MG/3 ML NEBULIZER IH PRN (06:41)
[2022-04-02 06:46] LABS: ABG Base Excess 3 mEq/L (-2 to 3); ABG HCO3 31 mEq/L (21-27); ABG Oxygen Saturation 96 % (95-98); ABG PCO2 64 mmHg (35-45); ABG PO2 96 mmHg (85-104); ABG TCO2 33 mEq/L (20-26); Blood Gas Modality ST
[2022-04-02] MEDS: MethylPREDNISolone 40 MG/ML VIAL IVP SCH (08:20)
[2022-04-02] MEDS: Furosemide 40 MG/4 ML VIAL IVP SCH ×2 (08:23→17:06)
[2022-04-02] MEDS ORDERED: Furosemide 40 MG TABLET PO SCH (09:00)
[2022-04-02 09:08] LABS: Hematocrit 37.7 % (37.5-50.1); Hemoglobin 12.3 g/dL (12.9-16.9); Immature Granulocytes % 1.2 % (0-4); Lymphocytes # 0.3 K/mcL (0.6-4.6); Lymphocytes % 7.5 %; Mean Corpuscular HGB Conc 32.6 g/dL (31.6-35.5); Mean Corpuscular Hemoglobin 30.4 pg (28.0-33.3); Mean Corpuscular Volume 93.3 fL (83.0-100.0); Mean Platelet Volume 9.8 fL (9.4-12.4); Monocytes # 0.2 K/mcL (0.0-1.3); Monocytes % 5.2 %; Platelet Count 206 K/mcL (140-400); Red Blood Count 4.04 M/mcL (4.19-5.50); Red Cell Distribution Width 12.8 % (11.5-14.5); Segmented Neutrophils % 86.1 %
[2022-04-02 09:10] LABS: VBG HCO3 33 mEq/L (21-27); VBG PCO2 74 mmHg (41-51); VBG PH 7.26 pH Units (7.32-7.42); VBG PO2 50 mmHg (25-50)
[2022-04-02 09:10] LABS: Bilirubin,Urine Negative (Negative); Blood,Urine Negative (Negative); Clarity,Urine Clear (Clear); Color,Urine Yellow (Yellow); Glucose,Urine (UA) Normal (Normal); Ketones,Urine Negative (Negative); Leukocyte Esterase,Urine Negative (Negative); Nitrite,Urine Negative (Negative); Protein,Urine Trace mg/dL (Neg-Trace); Specific Gravity,Urine 1.014 (1.010-1.025); Urobilinogen,Urine Normal (Normal)
[2022-04-02 09:12] LABS: White Blood Count 3.5 K/mcL (4.3-11.1)
[2022-04-02 09:40] LABS: Alanine Aminotransferase 20 Units/L (7-52); Albumin 3.7 g/dL (3.5-5.7); Albumin/Globulin Ratio 1.8 (1.1-2.2); Alkaline Phosphatase 93 Units/L (34-104); Aspartate Amino Transferase 24 Units/L (13-39); BUN/Creatinine Ratio 18 (6-26); Bilirubin,Total 0.6 mg/dL (0.3-1.0); Blood Urea Nitrogen 15 mg/dL (8-23); Carbon Dioxide 33 mEq/L (23-29); Chloride 87 mEq/L (98-107); Globulin 2.1 g/dL (2.4-3.5); Glucose 128 mg/dL (70-105); Magnesium 1.8 mg/dL (1.6-2.6); Osmolality,Calculated 268 (280-300); Phosphorous 5.6 mg/dL (2.7-4.5); Potassium 4.3 mEq/L (3.5-5.1); Sodium 128 mEq/L (136-145); Total Protein 5.8 g/dL (6.4-8.9); Troponin I 1.16 ng/mL (< 0.04); eGFR For African Americans > 60 (> 60); eGFR For Non-African Americans > 60 (> 60)
[2022-04-02] MEDS: Ipratropium/Albuterol Neb 3 ML IH SCH ×3 (10:34→22:50)
[2022-04-02] MEDS ORDERED: MethylPREDNISolone 40 MG/ML VIAL IVP SCH (12:00)
[2022-04-02] MEDS ORDERED: *HR* Heparin 5,000 UNIT/ML VIAL IVP ONE (15:37)
[2022-04-02] MEDS ORDERED: *HR* Heparin 5,000 UNIT/ML VIAL IVP PRN (15:37)
[2022-04-02] MEDS ORDERED: Perflutren Lipid Microsphere 1.3 ML in 0.9 % Sodium Chloride 8.7 ML IVP PRN (16:19)
[2022-04-02 16:53] LABS: INR 1.2; Prothrombin Time 13.7 Seconds (9.4-12.1)
[2022-04-02 16:57] LABS: Heparin anti-factor XA UFH < 0.04 IU/mL (0.30-0.70)
[2022-04-02] MEDS: Heparin 25,000UNIT/250ML 1/2NS 25,000 UNIT/250 ML IV.SOLN IVC SCH (17:03)
[2022-04-02 17:12] LABS: Hematocrit 35.5 % (37.5-50.1); Hemoglobin 11.7 g/dL (12.9-16.9); Mean Corpuscular Hemoglobin 30.1 pg (28.0-33.3); Mean Corpuscular Volume 91.3 fL (83.0-100.0); Mean Platelet Volume 9.7 fL (9.4-12.4); Platelet Count 220 K/mcL (140-400); Red Blood Count 3.89 M/mcL (4.19-5.50); Red Cell Distribution Width 12.8 % (11.5-14.5)
[2022-04-02 17:16] LABS: White Blood Count 6.1 K/mcL (4.3-11.1)
[2022-04-02] MEDS: Aspirin 81 MG TAB.CHEW PO SCH (20:56)
[2022-04-02] MEDS: Metoprolol XL (24 HR) Succ 50 MG TAB.ER.24H PO SCH (20:56)
[2022-04-02] MEDS: Azithromycin 500 MG in D5% in Water 250 ML IVPB SCH (20:57)
[2022-04-02] MEDS ORDERED: cefTRIAXone 1,000 MG in 0.9 % Sodium Chloride 10 ML IVP ONE (21:00)
[2022-04-03 00:22] LABS: Hematocrit 32.3 % (37.5-50.1); Hemoglobin 10.8 g/dL (12.9-16.9); Mean Corpuscular HGB Conc 33.4 g/dL (31.6-35.5); Mean Corpuscular Hemoglobin 30.3 pg (28.0-33.3); Mean Corpuscular Volume 90.5 fL (83.0-100.0); Mean Platelet Volume 9.5 fL (9.4-12.4); Platelet Count 216 K/mcL (140-400); Red Blood Count 3.57 M/mcL (4.19-5.50); Red Cell Distribution Width 12.9 % (11.5-14.5)
[2022-04-03 00:23] LABS: White Blood Count 9.9 K/mcL (4.3-11.1)
[2022-04-03 00:36] LABS: BUN/Creatinine Ratio 23 (6-26); Blood Urea Nitrogen 18 mg/dL (8-23); Calcium 8.5 mg/dL (8.6-10.3); Carbon Dioxide 33 mEq/L (23-29); Chloride 88 mEq/L (98-107); Glucose 142 mg/dL (70-105); Osmolality,Calculated 272 (280-300); Potassium 4.3 mEq/L (3.5-5.1); Sodium 129 mEq/L (136-145); eGFR For African Americans > 60 (> 60); eGFR For Non-African Americans > 60 (> 60)
[2022-04-03 00:55] LABS: A.calcoaceticus-baumannii cplx Not Detected (Not Detect); Bacteroides fragilis by PCR Not Detected (Not Detect); Enterobacter cloacae Cmplx PCR Not Detected (Not Detect); Enterobacterales by PCR Not Detected (Not Detect); Enterococcus faecalis by PCR Not Detected (Not Detect); Enterococcus faecium by PCR Not Detected (Not Detect); Staph epidermidis by PCR DETECTED (Not Detect); Staph lugdunensis by PCR Not Detected (Not Detect); Staphylococcus aureus by PCR Not Detected (Not Detect); Streptococcus agalactiae(B)PCR Not Detected (Not Detect); Streptococcus by PCR Not Detected (Not Detect); Streptococcus pneumoniae PCR Not Detected (Not Detect); Streptococcus pyogenes (A) PCR Not Detected (Not Detect); mecA/C Methicillin-Resist Gene DETECTED (Not Detect)
[2022-04-03 00:56] LABS: Candida albicans by PCR Not Detected (Not Detect); Candida auris by PCR Not Detected (Not Detect); Candida glabrata by PCR Not Detected (Not Detect); Candida krusei by PCR Not Detected (Not Detect); Candida parapsilosis by PCR Not Detected (Not Detect); Candida tropicalis by PCR Not Detected (Not Detect); Crypto. neoformans/gattii PCR Not Detected (Not Detect); Escherichia coli by PCR Not Detected (Not Detect); Klebs. pneumoniae group by PCR Not Detected (Not Detect); Klebsiella aerogenes by PCR Not Detected (Not Detect); Klebsiella oxytoca by PCR Not Detected (Not Detect); Proteus by PCR Not Detected (Not Detect); Pseudomonas aeruginosa by PCR Not Detected (Not Detect); Salmonella species by PCR Not Detected (Not Detect); Serratia marcescens by PCR Not Detected (Not Detect); Stenotrophomonas maltophilia Not Detected (Not Detect)
[2022-04-03] MEDS: *HR* Heparin 5,000 UNIT/ML VIAL IVP PRN (02:28)
[2022-04-03] MEDS ORDERED: *HR* LORazepam 2 MG/ML VIAL ONE (03:52)
[2022-04-03] MEDS ORDERED: Levalbuterol Neb 1.25 MG/3 ML ONE (03:56)
[2022-04-03] MEDS ORDERED: *HR* LORazepam 2 MG/ML VIAL IVP ONE ×2 (03:59→05:20)
[2022-04-03] MEDS: Ipratropium/Albuterol Neb 3 ML IH SCH ×4 (04:05→23:44)
[2022-04-03 04:13] LABS: ABG Base Excess 2 mEq/L (-2 to 3); ABG HCO3 28 mEq/L (21-27); ABG Oxygen Saturation 89 % (95-98); ABG PCO2 49 mmHg (35-45); ABG PH 7.36 pH Units (7.32-7.45); ABG PO2 59 mmHg (85-104); ABG TCO2 29 mEq/L (20-26)
[2022-04-03] MEDS ORDERED: Dexmedetomidine HCl 400 MCG/100 ML MLS IVC ONE (05:37)
[2022-04-03] MEDS: Dexmedetomidine HCl 400 MCG/100 ML MLS IVC SCH ×2 (06:05→22:09)
[2022-04-03] MEDS ORDERED: Famotidine 20 MG TABLET PO PRN (07:25)
[2022-04-03] MEDS ORDERED: Metoprolol XL (24 HR) Succ 50 MG TAB.ER.24H PO SCH (09:00)
[2022-04-03] MEDS ORDERED: DilTIAZem CD (24hr) 240 MG CAP.ER.24H PO SCH (09:00)
[2022-04-03] MEDS: DilTIAZem CD (24hr) 240 MG CAP.ER.24H PO SCH (10:53)
[2022-04-03] MEDS: Aspirin 81 MG TAB.CHEW PO SCH (10:53)
[2022-04-03] MEDS: amLODIPine 5 MG TABLET PO SCH (10:53)
[2022-04-03] MEDS: Cholecalciferol (D-3) 1,000 UNIT (25MCG) TABLET PO SCH (10:54)
[2022-04-03] MEDS: ZINC SULFATE 50 MG PO SCH (10:54)
[2022-04-03] MEDS: Cyanocobalamin (B-12) 1,000 MCG TABLET PO SCH (10:54)
[2022-04-03] MEDS: Metoprolol XL (24 HR) Succ 50 MG TAB.ER.24H PO SCH (10:54)
[2022-04-03] MEDS: Budesonide/Formoterol 160/4.5 1 PUFF INH IH SCH ×2 (11:26→23:44)
[2022-04-03] MEDS ORDERED: Albumin 25% 25gram/100mL 25 GM/100 ML IV.SOLN IVPB ONE (12:33)
[2022-04-03] MEDS: Furosemide 40 MG/4 ML VIAL IVP SCH ×3 (13:15→20:04)
[2022-04-03] MEDS: MethylPREDNISolone 40 MG/ML VIAL IVP SCH (13:15)
[2022-04-03] MEDS: cefTRIAXone 1,000 MG in 0.9 % Sodium Chloride 10 ML IVP SCH (16:11)
[2022-04-03] MEDS: Heparin 25,000UNIT/250ML 1/2NS 25,000 UNIT/250 ML IV.SOLN IVC SCH (17:20)
[2022-04-03] MEDS ORDERED: Chloraseptic Spray 177 ML BOTTLE MM PRN (21:21)
[2022-04-03] MEDS: Azithromycin 500 MG in D5% in Water 250 ML IVPB SCH (21:32)
[2022-04-04] MEDS: *HR* Heparin 5,000 UNIT/ML VIAL IVP PRN (00:35)
[2022-04-04] MEDS: Ipratropium/Albuterol Neb 3 ML IH SCH ×4 (04:25→22:56)
[2022-04-04 06:47] LABS: Hematocrit 30.8 % (37.5-50.1); Hemoglobin 10.3 g/dL (12.9-16.9); Mean Corpuscular HGB Conc 33.4 g/dL (31.6-35.5); Mean Corpuscular Hemoglobin 30.8 pg (28.0-33.3); Mean Corpuscular Volume 92.2 fL (83.0-100.0); Mean Platelet Volume 9.6 fL (9.4-12.4); Platelet Count 186 K/mcL (140-400); Red Blood Count 3.34 M/mcL (4.19-5.50); Red Cell Distribution Width 13.2 % (11.5-14.5); White Blood Count 7.9 K/mcL (4.3-11.1)
[2022-04-04 06:57] LABS: BUN/Creatinine Ratio 24 (6-26); Blood Urea Nitrogen 19 mg/dL (8-23); Calcium 8.7 mg/dL (8.6-10.3); Carbon Dioxide 37 mEq/L (23-29); Chloride 89 mEq/L (98-107); Glucose 106 mg/dL (70-105); Magnesium 1.9 mg/dL (1.6-2.6); Osmolality,Calculated 273 (280-300); Phosphorous 3.2 mg/dL (2.7-4.5); Potassium 3.9 mEq/L (3.5-5.1); Sodium 130 mEq/L (136-145); eGFR For African Americans > 60 (> 60); eGFR For Non-African Americans > 60 (> 60)
[2022-04-04] MEDS: Furosemide 40 MG/4 ML VIAL IVP SCH ×2 (08:25→17:25)
[2022-04-04] MEDS ORDERED: *HR* Metoprolol 5 MG/5 ML VIAL IVP ONE (08:29)
[2022-04-04] MEDS: amLODIPine 5 MG TABLET PO SCH (08:36)
[2022-04-04] MEDS: Cyanocobalamin (B-12) 1,000 MCG TABLET PO SCH (08:41)
[2022-04-04] MEDS: ZINC SULFATE 50 MG PO SCH (08:41)
[2022-04-04] MEDS: Cholecalciferol (D-3) 1,000 UNIT (25MCG) TABLET PO SCH (08:41)
[2022-04-04] MEDS: Aspirin 81 MG TAB.CHEW PO SCH (08:41)
[2022-04-04] MEDS: cefTRIAXone 1,000 MG in 0.9 % Sodium Chloride 10 ML IVP SCH (09:28)
[2022-04-04] MEDS: MethylPREDNISolone 40 MG/ML VIAL IVP SCH (09:28)
[2022-04-04] MEDS: Budesonide/Formoterol 160/4.5 1 PUFF INH IH SCH ×2 (10:13→22:57)
[2022-04-04] MEDS: DilTIAZem CD (24hr) 240 MG CAP.ER.24H PO SCH (12:00)
[2022-04-04] MEDS: Metoprolol XL (24 HR) Succ 50 MG TAB.ER.24H PO SCH (12:00)
[2022-04-04] MEDS: Dexmedetomidine HCl 400 MCG/100 ML MLS IVC SCH (13:30)
[2022-04-04] MEDS ORDERED: Eucerin Cream 57 GM TUBE TP PRN (14:53)
[2022-04-04] MEDS: *HR* Heparin 5,000 UNIT/ML VIAL SQ SCH (17:25)
[2022-04-04] MEDS: Azithromycin 500 MG in D5% in Water 250 ML IVPB SCH (21:05)
[2022-04-05 01:21] LABS: Hematocrit 31.8 % (37.5-50.1); Hemoglobin 10.5 g/dL (12.9-16.9); Mean Corpuscular Hemoglobin 30.1 pg (28.0-33.3); Mean Corpuscular Volume 91.1 fL (83.0-100.0); Platelet Count 198 K/mcL (140-400); Red Blood Count 3.49 M/mcL (4.19-5.50); Red Cell Distribution Width 13.3 % (11.5-14.5); White Blood Count 7.2 K/mcL (4.3-11.1)
[2022-04-05 01:34] LABS: BUN/Creatinine Ratio 24 (6-26); Blood Urea Nitrogen 16 mg/dL (8-23); Calcium 8.8 mg/dL (8.6-10.3); Carbon Dioxide 39 mEq/L (23-29); Chloride 89 mEq/L (98-107); Glucose 121 mg/dL (70-105); Magnesium 1.7 mg/dL (1.6-2.6); Osmolality,Calculated 280 (280-300); Phosphorous 3.3 mg/dL (2.7-4.5); Potassium 3.6 mEq/L (3.5-5.1); Sodium 134 mEq/L (136-145); eGFR For African Americans > 60 (> 60); eGFR For Non-African Americans > 60 (> 60)
[2022-04-05] MEDS: Ipratropium/Albuterol Neb 3 ML IH SCH ×4 (04:02→21:49)
[2022-04-05] MEDS: Dexmedetomidine HCl 400 MCG/100 ML MLS IVC SCH ×2 (04:39→16:30)
[2022-04-05] MEDS: *HR* Heparin 5,000 UNIT/ML VIAL SQ SCH ×2 (06:21→16:42)
[2022-04-05] MEDS: Metoprolol XL (24 HR) Succ 50 MG TAB.ER.24H PO SCH (07:57)
[2022-04-05] MEDS: Aspirin 81 MG TAB.CHEW PO SCH (07:57)
[2022-04-05] MEDS: MethylPREDNISolone 40 MG/ML VIAL IVP SCH (07:57)
[2022-04-05] MEDS: cefTRIAXone 1,000 MG in 0.9 % Sodium Chloride 10 ML IVP SCH (07:57)
[2022-04-05] MEDS: Furosemide 40 MG/4 ML VIAL IVP SCH ×2 (07:57→16:43)
[2022-04-05] MEDS: Cyanocobalamin (B-12) 1,000 MCG TABLET PO SCH (07:57)
[2022-04-05] MEDS: DilTIAZem CD (24hr) 240 MG CAP.ER.24H PO SCH (07:57)
[2022-04-05] MEDS: Cholecalciferol (D-3) 1,000 UNIT (25MCG) TABLET PO SCH (07:57)
[2022-04-05] MEDS: ZINC SULFATE 50 MG PO SCH (07:58)
[2022-04-05] MEDS: Zinc Sulfate 220 MG CAPSULE PO SCH (10:43)
[2022-04-05] MEDS ORDERED: Lidocaine -MPF 1% 5 ML AMPUL INFILT ONE (10:58)
[2022-04-05] MEDS: Budesonide/Formoterol 160/4.5 1 PUFF INH IH SCH ×2 (10:59→21:49)
[2022-04-05] MEDS: Azithromycin 500 MG in D5% in Water 250 ML IVPB SCH (20:58)
[2022-04-06] MEDS: Dexmedetomidine HCl 400 MCG/100 ML MLS IVC SCH ×3 (00:47→18:06)
[2022-04-06] MEDS: Ipratropium/Albuterol Neb 3 ML IH SCH ×4 (04:23→23:30)
[2022-04-06] MEDS: *HR* Heparin 5,000 UNIT/ML VIAL SQ SCH ×2 (05:21→18:06)
[2022-04-06] MEDS: Acetaminophen 325 MG TABLET PO PRN (05:21)
[2022-04-06 06:00] LABS: Hematocrit 31.9 % (37.5-50.1); Hemoglobin 10.7 g/dL (12.9-16.9); Mean Corpuscular HGB Conc 33.5 g/dL (31.6-35.5); Mean Corpuscular Hemoglobin 30.3 pg (28.0-33.3); Mean Corpuscular Volume 90.4 fL (83.0-100.0); Mean Platelet Volume 9.9 fL (9.4-12.4); Platelet Count 218 K/mcL (140-400); Red Blood Count 3.53 M/mcL (4.19-5.50); Red Cell Distribution Width 13.2 % (11.5-14.5)
[2022-04-06 06:05] LABS: White Blood Count 11.2 K/mcL (4.3-11.1)
[2022-04-06 06:57] LABS: BUN/Creatinine Ratio 26 (6-26); Blood Urea Nitrogen 19 mg/dL (8-23); Carbon Dioxide 38 mEq/L (23-29); Chloride 85 mEq/L (98-107); Glucose 134 mg/dL (70-105); Magnesium 1.6 mg/dL (1.6-2.6); Osmolality,Calculated 276 (280-300); Phosphorous 2.9 mg/dL (2.7-4.5); Potassium 3.3 mEq/L (3.5-5.1); Sodium 131 mEq/L (136-145); eGFR For African Americans > 60 (> 60); eGFR For Non-African Americans > 60 (> 60)
[2022-04-06] MEDS: cefTRIAXone 1,000 MG in 0.9 % Sodium Chloride 10 ML IVP SCH (08:40)
[2022-04-06] MEDS: Furosemide 40 MG/4 ML VIAL IVP SCH ×2 (08:40→18:06)
[2022-04-06] MEDS: MethylPREDNISolone 40 MG/ML VIAL IVP SCH (08:40)
[2022-04-06] MEDS: Aspirin 81 MG TAB.CHEW PO SCH (08:41)
[2022-04-06] MEDS: Cyanocobalamin (B-12) 1,000 MCG TABLET PO SCH (08:41)
[2022-04-06] MEDS: Cholecalciferol (D-3) 1,000 UNIT (25MCG) TABLET PO SCH (08:41)
[2022-04-06] MEDS: Metoprolol XL (24 HR) Succ 50 MG TAB.ER.24H PO SCH (08:41)
[2022-04-06] MEDS: Zinc Sulfate 220 MG CAPSULE PO SCH (08:41)
[2022-04-06] MEDS: Budesonide/Formoterol 160/4.5 1 PUFF INH IH SCH ×2 (11:00→23:30)
[2022-04-06] MEDS ORDERED: MOM Conc 10 ML UD.LIQ PO PRN (12:34)
[2022-04-06] MEDS ORDERED: Bisacodyl 10 MG RECTAL SUPPOSITORY RC PRN (12:37)
[2022-04-06] MEDS: Sennosides/Docusate Sodium TABLET PO SCH (21:06)
[2022-04-06] MEDS: Melatonin 3 MG TABLET PO PRN (21:51)
[2022-04-07] MEDS: Dexmedetomidine HCl 400 MCG/100 ML MLS IVC SCH ×2 (02:37→12:04)
[2022-04-07] MEDS: Ipratropium/Albuterol Neb 3 ML IH SCH ×4 (03:40→22:00)
[2022-04-07 06:00] LABS: Hematocrit 33.7 % (37.5-50.1); Hemoglobin 11.1 g/dL (12.9-16.9); Mean Corpuscular HGB Conc 32.9 g/dL (31.6-35.5); Mean Corpuscular Hemoglobin 29.9 pg (28.0-33.3); Mean Corpuscular Volume 90.8 fL (83.0-100.0); Mean Platelet Volume 9.9 fL (9.4-12.4); Platelet Count 232 K/mcL (140-400); Red Blood Count 3.71 M/mcL (4.19-5.50); White Blood Count 7.7 K/mcL (4.3-11.1)
[2022-04-07] MEDS: *HR* Heparin 5,000 UNIT/ML VIAL SQ SCH ×2 (06:56→18:15)
[2022-04-07 07:30] LABS: BUN/Creatinine Ratio 27 (6-26); Blood Urea Nitrogen 17 mg/dL (8-23); Calcium 9.1 mg/dL (8.6-10.3); Carbon Dioxide 39 mEq/L (23-29); Chloride 84 mEq/L (98-107); Glucose 128 mg/dL (70-105); Magnesium 1.6 mg/dL (1.6-2.6); Osmolality,Calculated 275 (280-300); Phosphorous 4.7 mg/dL (2.7-4.5); Potassium 3.6 mEq/L (3.5-5.1); Sodium 131 mEq/L (136-145); eGFR For African Americans > 60 (> 60); eGFR For Non-African Americans > 60 (> 60)
[2022-04-07] MEDS: Metoprolol XL (24 HR) Succ 50 MG TAB.ER.24H PO SCH (08:51)
[2022-04-07] MEDS: Cholecalciferol (D-3) 1,000 UNIT (25MCG) TABLET PO SCH (08:51)
[2022-04-07] MEDS: Sennosides/Docusate Sodium TABLET PO SCH ×2 (08:51→20:17)
[2022-04-07] MEDS: Aspirin 81 MG TAB.CHEW PO SCH (08:51)
[2022-04-07] MEDS: Cyanocobalamin (B-12) 1,000 MCG TABLET PO SCH (08:51)
[2022-04-07] MEDS: Zinc Sulfate 220 MG CAPSULE PO SCH (08:51)
[2022-04-07] MEDS: Acetaminophen 325 MG TABLET PO PRN (08:51)
[2022-04-07] MEDS: MethylPREDNISolone 40 MG/ML VIAL IVP SCH (08:52)
[2022-04-07] MEDS: Furosemide 40 MG/4 ML VIAL IVP SCH ×2 (08:52→18:15)
[2022-04-07] MEDS: Budesonide/Formoterol 160/4.5 1 PUFF INH IH SCH ×2 (11:02→22:00)
[2022-04-07] MEDS: Melatonin 3 MG TABLET PO PRN (20:16)
[2022-04-08] MEDS: Dexmedetomidine HCl 400 MCG/100 ML MLS IVC SCH (00:52)
[2022-04-08] MEDS: Ipratropium/Albuterol Neb 3 ML IH SCH (03:59)
[2022-04-08 04:57] LABS: Hematocrit 33.9 % (37.5-50.1); Hemoglobin 11.2 g/dL (12.9-16.9); Mean Corpuscular Hemoglobin 30.4 pg (28.0-33.3); Mean Corpuscular Volume 91.9 fL (83.0-100.0); Mean Platelet Volume 9.7 fL (9.4-12.4); Platelet Count 244 K/mcL (140-400); Red Blood Count 3.69 M/mcL (4.19-5.50); Red Cell Distribution Width 13.1 % (11.5-14.5); White Blood Count 9.9 K/mcL (4.3-11.1)
[2022-04-08 05:23] LABS: BUN/Creatinine Ratio 28 (6-26); Blood Urea Nitrogen 18 mg/dL (8-23); Calcium 8.8 mg/dL (8.6-10.3); Carbon Dioxide 41 mEq/L (23-29); Chloride 84 mEq/L (98-107); Glucose 95 mg/dL (70-105); Osmolality,Calculated 272 (280-300); Potassium 3.7 mEq/L (3.5-5.1); Sodium 130 mEq/L (136-145); eGFR For African Americans > 60 (> 60); eGFR For Non-African Americans > 60 (> 60)
[2022-04-08] MEDS: *HR* Heparin 5,000 UNIT/ML VIAL SQ SCH (05:41)
[2022-04-08 07:06] VITALS: BP 115/53; PULSE 85; TEMP 97.6; O2SAT 91
[2022-04-08] MEDS: MethylPREDNISolone 40 MG/ML VIAL IVP SCH (08:05)
[2022-04-08] MEDS: Furosemide 40 MG/4 ML VIAL IVP SCH (08:06)
[2022-04-08] MEDS: Metoprolol XL (24 HR) Succ 50 MG TAB.ER.24H PO SCH (08:09)
[2022-04-08] MEDS: Zinc Sulfate 220 MG CAPSULE PO SCH (08:09)
[2022-04-08] MEDS: Aspirin 81 MG TAB.CHEW PO SCH (08:09)
[2022-04-08] MEDS: Cholecalciferol (D-3) 1,000 UNIT (25MCG) TABLET PO SCH (08:09)
[2022-04-08] MEDS: Cyanocobalamin (B-12) 1,000 MCG TABLET PO SCH (08:09)
[2022-04-08] MEDS: Sennosides/Docusate Sodium TABLET PO SCH (08:09)
[2022-04-08] MEDS ORDERED: *HR* Metoprolol 5 MG/5 ML VIAL IVP ONE ×2 (08:43→08:44)
[2022-04-08] MEDS ORDERED: Bisacodyl 10 MG RECTAL SUPPOSITORY RC ONE (16:00)
== END 2022-04-08 09:21 | disposition expired | DRG 871 ==
LOC: 2ANU 19:52 → EMEROOARM 19:52 → SUATTDRO 23:58 → 2ANU 04-02 01:24 → SUATTDRO 04-02 11:52 → 2NENU 04-02 18:15 → 2NNU 04-03 07:51
PROVIDERS: ADMIT Internal Medicine; ATTEND Internal Medicine